=== PATIENT | female | born 1955 | race Two or more races ===

== ENCOUNTER 2017-07-16 18:15 | Emergency (ER) | payer OTHER ==
[~2017-07-16] VITALS: Ht 162.6 cm; Wt 79.4 kg
[~2017-07-16 18:15] MED LIST: GENTAMICIN SULF15 G2 LEFT EYE; PREDNISONE20 MG ORAL
--- NOTE | 2017-07-16 18:56 | Emergency Room Report ---
History of Present Illness General Chief Complaint: General Complaint Source: Patient Present Illness HPI 62-year-old female presents to the emergency department complaining of bruising , mild swelling and 6/10 in severity tenderness to the medial aspect of the left foot times one day. Patient does not recall appreciable fall or injury. Patient denies taking blood thinning medications. Patient denies fevers, chills , easy bruising elsewhere, rash. Patient has not taken any medication for her symptoms. Pt reports past medical history of depression and insomnia and states she takes Lexapro for depression and trazodone for insomnia. Patient does not recall she got up and middle the night and injured her foot. She denies calf pain. Denies hx of blood disorder. denies bloody noses, blood in stool or dark tarry stool. Denies numbness tingling or loss of sensation or gross motor movements of the extremities, incontinence of bowel or bladder. Denies CP, Palpitations, LOC, AMS, dizziness, Changes in Vision, Sensation, paresthesias, or a sudden severe headache. Allergies: Coded Allergies: No Known Allergies (Unverified , 10/10/15) Patient History Past Medical History: see triage record Past Surgical History: none Pertinent Family History: none Immunizations: UTD Reviewed Nursing Documentation: PMH: Agreed, PSxH: Agreed Nursing Documentation-PMH Past Medical History: No History, Except For History Of Psychiatric Problem: Yes - Depression Review of Systems All Other Systems: negative except mentioned in HPI Physical Exam Vital Signs Date Time Temp Pulse Resp B/P (MAP) Pulse Ox O2 Delivery O2 Flow Rate FiO2 07/16/17 18:20 97.9 70 16 134/79 98 Room Air Sp02 EP Interpretation: reviewed, normal General Appearance: no apparent distress, alert, GCS 15, non-toxic Head: normocephalic, atraumatic Eyes: bilateral eye normal inspection, bilateral eye PERRL ENT: hearing grossly normal, normal voice Neck: full range of motion Respiratory: chest non-tender, lungs clear, normal breath sounds, speaking full sentences Cardiovascular #1: regular rate, rhythm, no edema Gastrointestinal: non tender, soft Musculoskeletal: back normal, gait/station normal, normal range of motion, tender - TTP to the medial asptect of the left foot, pulses intact. Neurologic: alert, oriented x3, responsive, motor strength/tone normal, sensory intact, speech normal Psychiatric: judgement/insight normal, memory normal, mood/affect normal Skin: normal color, no rash, warm/dry, well hydrated, other - echymosis to the medial left foot. no erythema, skin is intact. Medical Decision Making PA Attestation Dr. Donovan is my supervising Physician whom patient management has been discussed with. Diagnostic Impression: Primary Impression: Contusion of foot with skin surface intact ER Course 62-year-old female presents to the emergency department complaining of bruising , mild swelling and 6/10 in severity tenderness to the medial aspect of the left foot times one day. Patient does not recall appreciable fall or injury. Patient denies taking blood thinning medications. Patient denies fevers, chills , easy bruising elsewhere, rash. Patient has not taken any medication for her symptoms. Pt reports past medical history of depression and insomnia and states she takes Lexapro for depression and trazodone for insomnia. Patient does not recall she got up and middle the night and injured her foot. She denies calf pain. Denies hx of blood disorder. denies bloody noses, blood in stool or dark tarry stool. Denies numbness tingling or loss of sensation or gross motor movements of the extremities, incontinence of bowel or bladder. Denies CP, Palpitations, LOC, AMS, dizziness, Changes in Vision, Sensation, paresthesias, or a sudden severe headache. Ddx considered but are not limited to Fracture, dislocation, contusion, Sprain/ Strain/Spasm, blood dyscrasia just to name a few. Vital signs: are WNL, pt. is afebrile H&PE are most consistent with musculoskeletal injury will perform imaging to r/ o fractures/dislocations. ORDERS: - X-ray Left Foot 3 views - negative for fx, Dislocation, or significant soft tissue injury, per preliminary read in ED by Dr. Donovan - interpretation is scribed by PA. ED INTERVENTIONS: - Pt. declines PO Tylenol- -Brayan wrap applied to the left foot by technical support analyst. Pt. remains neurovascularly intact. DISCHARGE: At this time pt. is stable for d/c to home. Will provide printed patient care instructions, and any necessary prescriptions. Care plan and follow up instructions have been discussed with the patient prior to discharge. Last Vital Signs Date Time Temp Pulse Resp B/P (MAP) Pulse Ox O2 Delivery O2 Flow Rate FiO2 9/7/17 18:20 97.9 70 16 134/79 98 Room Air Disposition: HOME, SELF-CARE Condition: Stable Scripts Acetaminophen* (TYLENOL EXTRA STRENGTH*) 500 Mg Tablet 500 MG ORAL Q6H, #20 TAB 0 Refills Prov: Cheryle Mandel 07/16/17 Referrals: [employer] [facility],REFERRIN (PCP) Patient Instructions: Foot Contusion Additional Instructions: Take medications as directed. Follow up with a Primary Care Provider in 3-5 days, even if your symptoms have resolved. --Please review list of primary care clinics, if you do not already have a primary care provider Return sooner to ED if new symptoms occur, or current symptoms become worse. - Please note that this Emergency Department Report was dictated using [employer] double technology software, occasionally this can lead to erroneous entry secondary to interpretation by the dictation equipment. Cheryle Mandel Jul 16, 2017 18:56
[2017-07-16] MEDS ORDERED: TYLENOL EXTRA500 MG ORAL (19:17)
[2017-07-16 19:25] VITALS: BP 134/79
[2017-07-16 19:33] VITALS: BP 134/79
--- NOTE | 2017-07-17 10:24 | Diagnostic Imaging Report ---
Indication: Pain Comparison: None Findings: 3 views of the left foot were obtained. No acute fractures, malalignment, erosions or periostitis are identified. Bone mineralization is within normal limits. Soft tissues are unremarkable. Impression: No acute findings
== END 2017-07-16 19:33 | disposition home or self-care (01) ==
LOC: EMR 18:49
DX: S90.32XA Contusion of left foot, initial encounter (principal); X58.XXXA Exposure to other specified factors, initial encounter; Y92.89 Other specified places as the place of occurrence of the external cause; F32.9 Major depressive disorder, single episode, unspecified; G47.00 Insomnia, unspecified; Z79.899 Other long term (current) drug therapy
CPT/HCPCS: 99283

== ENCOUNTER 2017-10-12 18:27 | Emergency (ER) | payer OTHER ==
[~2017-10-12] VITALS: Ht 165.1 cm; Wt 78.9 kg
[~2017-10-12 18:27] MED LIST changes: +TYLENOL EXTRA500 MG ORAL
[2017-10-12] MEDS ORDERED: GABAPENTIN600 MG ORAL (18:37)
[2017-10-12] MEDS ORDERED: TRAZODONE HCL100 MG ORAL (18:37)
[2017-10-12] MEDS ORDERED: LEXAPRO20 MG ORAL (18:37)
--- NOTE | 2017-10-12 18:58 | Emergency Room Report ---
History of Present Illness General Chief Complaint: Pain Present Illness HPI 62-year-old female presents to emergency department complaining of 10 out of 10 in severity acute posterior knee and calf pain since yesterday. Patient reports that she has had chronic pain in the knee and back however the pain she is experiencing is different and she denies trauma or fall. Patient reports feeling heaviness in the affected extremity on reports some swelling. Patient denies erythema, increased temperature palpation, open wounds or bruises. Patient states pain is exacerbated upon standing, walking however no relief from sitting and resting. Patient denies fevers, chills, chest pain, dyspnea, recent travel or shortness of breath. Denies CP, Palpitations, LOC, AMS, dizziness, Changes in Vision, Sensation, paresthesias, or a sudden severe headache. Allergies: Coded Allergies: No Known Allergies (Unverified , 10/10/15) Patient History Past Medical History: see triage record Past Surgical History: none Pertinent Family History: none Reviewed Nursing Documentation: PMH: Agreed, PSxH: Agreed Nursing Documentation-PMH History Of Psychiatric Problem: Yes - Depression Review of Systems All Other Systems: negative except mentioned in HPI Physical Exam Vital Signs Date Time Temp Pulse Resp B/P (MAP) Pulse Ox O2 Delivery O2 Flow Rate FiO2 10/12/17 18:32 97.7 62 18 124/68 100 Room Air Sp02 EP Interpretation: reviewed, normal General Appearance: no apparent distress, alert, GCS 15, non-toxic Head: normocephalic, atraumatic Eyes: bilateral eye normal inspection, bilateral eye PERRL ENT: hearing grossly normal, normal voice Neck: full range of motion Respiratory: lungs clear, normal breath sounds, speaking full sentences Cardiovascular #1: regular rate, rhythm, normal capillary refill Cardiovascular #2: 2+ dorsalis pedis (R), 2+ dorsalis pedis (L) Rectal: deferred Genitourinary: normal inspection, no CVA tenderness Musculoskeletal: back normal, gait/station normal, normal range of motion, other - no increased laxity to the left knee, FROM , no bruises, no abrasions. , tender - posterior left knee and calf ttp, no obvious deformity, palpable soft mass vs. posterior popliteal varicose vein, not throbbing palpated. Neurologic: alert, oriented x3, responsive, motor strength/tone normal, sensory intact, normal gait - pt. is mildly compensating sparing the left LE. , speech normal Skin: normal color, no rash, warm/dry, well hydrated, other - varicose veins Medical Decision Making PA Attestation Dr. cedeno is my supervising Physician whom patient management has been discussed with. Diagnostic Impression: Primary Impression: Knee pain, acute Qualified Codes: M25.562 - Pain in left knee Additional Impression: Varicose veins of lower extremity ER Course 62-year-old female presents to emergency department complaining of 10 out of 10 in severity acute posterior knee and calf pain since yesterday. Patient reports that she has had chronic pain in the knee and back however the pain she is experiencing is different and she denies trauma or fall. Patient reports feeling heaviness in the affected extremity on reports some swelling. Patient denies erythema, increased temperature palpation, open wounds or bruises. Patient states pain is exacerbated upon standing, walking however no relief from sitting and resting. Patient denies fevers, chills, chest pain, dyspnea, recent travel or shortness of breath. Denies CP, Palpitations, LOC, AMS, dizziness, Changes in Vision, Sensation, paresthesias, or a sudden severe headache. Ddx considered but are not limited to Cellulitis, DVT, varicose vein, PAD, Venous insufficiency, bakers cyst , fracture, sprain, dislocation just to name a few. Vital signs: are WNL, pt. is afebrile H&PE are most consistent with moderate varicose veins of the LLE will r/o DVT, or bakers cyst, popliteal artery aneurysm is of very low suspicion given no palpable pulsations. ORDERS: -X-Ray Knee: negative LE duplex U/s : Negative for DVT or bakers cyst, swollen /engorged varicose veins noted per US tech report. ED INTERVENTIONS: -Tylenol #3 PO -Brayan wrap applied to the left knee by machines technician. Pt. remains neurovascularly intact. -d/w pt. conservative treatment, and to follow up with a primary care provider. pt given a list of primary care clinics for follow up. d/w pt. to return to the ED with worsening or new symptoms. DISCHARGE: At this time pt. is stable for d/c to home. Will provide printed patient care instructions, and any necessary prescriptions. Care plan and follow up instructions have been discussed with the patient prior to discharge. Other X-Ray Diagnostic Results Other X-Ray Diagnostic Results : X-Ray ordered: Left Knee Indication: Pain EP Interpretation: Yes PA Xray: Interpretation reviewed, by supervising MD, and agrees with findings. Interpretation: no dislocation, no soft tissue swelling, no fractures Impression: No acute disease Electronically Signed by: Cheryle Mandel PA-C Last Vital Signs Date Time Temp Pulse Resp B/P (MAP) Pulse Ox O2 Delivery O2 Flow Rate FiO2 10/12/17 18:32 97.7 62 18 124/68 100 Room Air Disposition: HOME, SELF-CARE Condition: Stable Scripts Acetaminophen With Codeine (T#3) (TYLENOL #3 TAB*) Y Tab 1 TAB ORAL Q6HR Y for For Pain, #10 TAB Prov: Cheryle Mandel 10/12/17 Patient Instructions: Knee Pain Additional Instructions: Take medications as directed. Follow up with a Primary Care Provider in 3-5 days, additional tests and further evaluation may be needed if symptoms continue --Please review list of primary care clinics, if you do not already have a primary care provider Return sooner to ED if new symptoms occur, or current symptoms become worse. - Please note that this Emergency Department Report was dictated using [employer] director technology software, occasionally this can lead to erroneous entry secondary to interpretation by the dictation equipment. Cheryle Mandel Oct 12, 2017 18:58
[2017-10-12] MEDS ORDERED: Tylenol #3 tab (300mg/30mg) ORAL ONE (20:00)
[2017-10-12] MEDS ORDERED: ACETAMINOPHEN-1 EAC1 ORAL (20:01)
[2017-10-12 20:10] VITALS: BP 124/68
[2017-10-12 20:13] VITALS: BP 124/68
--- NOTE | 2017-10-13 10:39 | Diagnostic Imaging Report ---
APPROVED REPORT CPT Code: 23129 Present Symptoms Lower Extremity Pain: Left LEFT LEG: Venous imaging reveals a patent deep venous system. There is no evidence of thrombus within the femoral, popliteal or tibial segments. The greater saphenous vein is also within normal limits. Doppler indicates normal spontaneous flow within these segments. Incidental finding: Compressible anechoic structure in the distal popliteal fossa. Eng's cyst vs. prominent superficial vein.
== END 2017-10-12 20:13 | disposition home or self-care (01) ==
LOC: EMR 19:10
DX: M25.562 Pain in left knee (principal); I83.90 Asymptomatic varicose veins of unspecified lower extremity; F32.9 Major depressive disorder, single episode, unspecified
CPT/HCPCS: 93971; 99283

== ENCOUNTER 2017-12-10 20:01 | Emergency (ER) | payer MEDICAID, OTHER ==
[~2017-12-10] VITALS: Ht 160 cm; Wt 77.1 kg
[~2017-12-10 20:01] MED LIST changes: +ACETAMINOPHEN-1 EAC1 ORAL; +GABAPENTIN600 MG ORAL; +LEXAPRO20 MG ORAL; +TRAZODONE HCL100 MG ORAL
[2017-12-10 20:25] VITALS: BP 143/72
[2017-12-10] MEDS ORDERED: Cephalexin 500mg cap ORAL ONE (21:00)
[2017-12-10] MEDS ORDERED: PHENAZOPYRIDIN200 MG ORAL (21:04)
[2017-12-10] MEDS ORDERED: KEFLEX500 MG ORAL (21:04)
[2017-12-10 21:09] LABS: APPEARANCE,URINE CLOUDY; BILIRUBIN, URINE NEGATIVE (NEGATIVE); COLOR,URINE PALE YELLOW; GLUCOSE, URINE (UA) NEGATIVE (NEGATIVE); KETONES,URINE NEGATIVE (NEGATIVE); LEUKOCYTE ESTERASE ,URINE 3+ (NEGATIVE); NITRITE,URINE NEGATIVE (NEGATIVE); PH,URINE 6 (4.5-8.0); PROTEIN,URINE NEGATIVE (NEGATIVE); UROBILINOGEN,URINE NORMAL MG/DL (0.0-1.0)
[2017-12-10 21:27] VITALS: BP 143/72
--- NOTE | 2017-12-10 21:42 | Emergency Room Report ---
History of Present Illness General Chief Complaint: Female Urogenital Problems Source: Patient Present Illness HPI patient is 62 year old female who presented for increased dysuria for three days. she denied vomiting or fever. She had previous UTI The patient having increased suprapubic pain. She initially had some hematuria which had resolved. Patient denied any fever she denied flank pain or vomiting. Allergies: Coded Allergies: No Known Allergies (Unverified , 10/10/15) Patient History Past Medical History: see triage record Now: No Reviewed Nursing Documentation: PMH: Agreed, PSxH: Agreed Nursing Documentation-PMH History Of Psychiatric Problem: Yes - Depression Review of Systems All Other Systems: negative except mentioned in HPI Physical Exam Vital Signs Date Time Temp Pulse Resp B/P (MAP) Pulse Ox O2 Delivery O2 Flow Rate FiO2 12/10/17 20:22 98.1 64 15 143/72 96 Room Air General Appearance: well appearing, no apparent distress, alert, GCS 15 Head: normocephalic, atraumatic ENT: hearing grossly normal, normal voice Neck: full range of motion, supple Respiratory: no respiratory distress, speaking full sentences Gastrointestinal: normal inspection, normal bowel sounds, soft Genitourinary: no CVA tenderness Musculoskeletal: no calf tenderness Neurologic: normal inspection, alert, oriented x3, responsive, motor strength/ tone normal, normal gait Psychiatric: normal inspection, mood/affect normal Skin: no rash Medical Decision Making Diagnostic Impression: Primary Impression: Urinary tract infection ER Course Patient presented for abdominal pain. Differential diagnoses included ischemic bowel, appendicitis, perforated viscus, abdominal aortic aneurysm, inferior myocardial infarction, viral gastroenteritis Patient has a benign exam and does not appear to require any imaging at this time. The patient noted have evidence of urinary infection. Patient given oral antibiotics in emergency department. The patient is advised to return if she began having worsening condition or worsening pain or other concerns Labs Test 12/10/17 20:55 Urine Color Pale yellow Urine Appearance Cloudy Urine pH 6 (4.5-8.0) Urine Specific Anderson 1.010 (1.005-1.035) Urine Protein Negative (NEGATIVE) Urine Glucose (UA) Negative (NEGATIVE) Urine Ketones Negative (NEGATIVE) Urine Occult Blood 3+ (NEGATIVE) Urine Nitrite Negative (NEGATIVE) Urine Bilirubin Negative (NEGATIVE) Urine Urobilinogen Normal MG/DL (0.0-1.0) Urine Leukocyte Esterase 3+ (NEGATIVE) Urine RBC 0-2 /HPF (0 - 2) Urine WBC Tntc /HPF (0 - 2) Urine Squamous Epithelial Cells Few /LPF (NONE/OCC) Urine Bacteria Few /HPF (NONE) Last Vital Signs Date Time Temp Pulse Resp B/P (MAP) Pulse Ox O2 Delivery O2 Flow Rate FiO2 12/10/17 20:22 98.1 64 15 143/72 96 Room Air Status: improved Disposition: HOME, SELF-CARE Condition: Stable Scripts Phenazopyridine Hcl* (PYRIDIUM*) 200 Mg Tablet 200 MG ORAL THREE TIMES A DAY, #14 TAB 0 Refills Prov: Johnny Weiner 12/10/17 Cephalexin* (KEFLEX*) 500 Mg Capsule 500 MG ORAL Q6H, #28 CAP 0 Refills Prov: Johnny Weiner 12/10/17 Patient Instructions: Urinary Tract Infection Johnny Weiner Dec 10, 2017 21:42
== END 2017-12-10 21:27 | disposition home or self-care (01) ==
LOC: EMR 20:55
DX: N39.0 Urinary tract infection, site not specified (principal)
CPT/HCPCS: 81003; 87086; 99283

== ENCOUNTER 2018-03-08 21:16 | Emergency (ER) | payer MEDICAID ==
[~2018-03-08] VITALS: Ht 162.6 cm; Wt 77.1 kg
[~2018-03-08 21:16] MED LIST changes: +KEFLEX500 MG ORAL; +PHENAZOPYRIDIN200 MG ORAL
[2018-03-08] MEDS ORDERED: Nitroglycerin Subl 0.4mg tab SL PRN (21:30)
[2018-03-08] MEDS ORDERED: Aspirin Baby 81mg ORAL ONE (21:30)
[2018-03-08 21:40] VITALS: BP 138/71
--- NOTE | 2018-03-08 21:40 | Emergency Room Report ---
History of Present Illness General Chief Complaint: Chest Pain Source: Patient Present Illness [facility] This is a 62-year-old female with history of depression. She presents with chief complaint of left-sided chest pain has been ongoing for 2 days. Pain radiates to the back. Exertion does make it mildly worse. No shortness of breath. No diaphoresis. No nausea no vomiting. Tramadol and is not helping. No cough or congestion. No runny nose. Allergies: Coded Allergies: No Known Allergies (Unverified , 10/10/15) Patient History Past Medical History: see triage record, old chart reviewed, psych hx Past Surgical History: none Pertinent Family History: none Social History: Denies: smoking Now: No Immunizations: other Reviewed Nursing Documentation: PMH: Agreed; PSxH: Agreed Nursing Documentation-PMH History Of Psychiatric Problem: Yes - DEPRESSION Review of Systems Eye: Denies: eye pain, blurred vision ENT: Denies: ear pain, nose congestion, throat swelling Respiratory: Denies: cough, shortness of breath Cardiovascular: Reports: chest pain; Denies: palpitations Gastrointestinal: Denies: abdominal pain, diarrhea, nausea, vomiting Musculoskeletal: Denies: back pain, joint pain Skin: Denies: rash Neurological: Denies: headache, numbness Endocrine: Denies: increased thirst, increased urine Hematologic/Lymphatic: Denies: easy bruising All Other Systems: negative except mentioned in HPI Physical Exam Vital Signs Date Time Temp Pulse Resp B/P (MAP) Pulse Ox O2 Delivery O2 Flow Rate FiO2 03/08/18 21:28 97.4 74 16 138/71 98 Room Air 97.3 vitals normal Sp02 EP Interpretation: reviewed, normal General Appearance: well appearing, no apparent distress, alert Head: normocephalic, atraumatic Eyes: bilateral eye PERRL, bilateral eye EOMI ENT: hearing grossly normal, normal pharynx Neck: full range of motion, supple, no meningismus Respiratory: chest non-tender, lungs clear, normal breath sounds Cardiovascular #1: regular rate, rhythm, no murmur Gastrointestinal: normal bowel sounds, non tender, no mass, no organomegaly, no bruit, non-distended Musculoskeletal: back normal, gait/station normal, normal range of motion Psychiatric: mood/affect normal Skin: warm/dry Medical Decision Making Diagnostic Impression: Primary Impression: Chest pain Qualified Codes: R07.9 - Chest pain, unspecified ER Course She presents with vague atypical chest pain. Has been constant for 2 days and troponin is negative. EKG is unremarkable. Said she felt better now. Initially I had put her up for admission versus transfer for further workup on her chest pain. I discussed this with her son who is a family physician. While waiting for insurance process, she said she felt better and wants to go home. We'll discharge home with follow-up with cardiology for further workup. She is otherwise low risk. Lab Results Impression labs normal EKG Diagnostic Results Rate: normal Rhythm: NSR ST Segments: other - right bundle branch block ASA given to the pt in ED: Yes Rhythm Strip Diag. Results Rhythm Strip Time: 21:40 EP Interpretation: yes Rate: 70 Rhythm: NSR, no PVC's, no ectopy Chest X-Ray Diagnostic Results Chest X-Ray Diagnostic Results : Chest X-Ray Ordered: Yes # of Views/Limited/Complete: 1 View Indication: Chest Pain EP Interpretation: Yes Interpretation: no consolidation, no effusion, no pneumothorax, no acute cardiopulmonary disease Impression: No acute disease Electronically Signed by: Deejay Hurley MD Last Vital Signs Date Time Temp Pulse Resp B/P (MAP) Pulse Ox O2 Delivery O2 Flow Rate FiO2 03/08/18 21:28 97.4 74 16 138/71 98 Room Air 97.3 Status: improved Disposition: HOME, SELF-CARE Condition: Stable Referrals: [facility]ERR[facility] (PCP) Patient Instructions: Nonspecific Chest Pain Additional Instructions: Follow up with your doctor in 2-3 days. Take an aspirin a day. You may need a referral to see a aerial advertiser for further heart work up like a stress test. DEEJAY HURLEY M.D. Mar 08, 2018 21:40
[2018-03-08 22:01] LABS: APPEARANCE,URINE CLEAR; BILIRUBIN, URINE NEGATIVE (NEGATIVE); COLOR,URINE PALE YELLOW; GLUCOSE, URINE (UA) NEGATIVE (NEGATIVE); KETONES,URINE NEGATIVE (NEGATIVE); LEUKOCYTE ESTERASE ,URINE 1+ (NEGATIVE); NITRITE,URINE NEGATIVE (NEGATIVE); PH,URINE 6 (4.5-8.0); PROTEIN,URINE NEGATIVE (NEGATIVE); UROBILINOGEN,URINE NORMAL MG/DL (0.0-1.0)
[2018-03-08 22:03] LABS: BASOPHILS % (AUTO) 1.2 % (0.0-2.0); EOSINOPHILS % (AUTO) 1.9 % (0.0-3.0); HEMATOCRIT 41.5 % (37.0-47.0); HEMOGLOBIN 14.8 G/DL (12.0-16.0); MEAN CORPUSCULAR VOLUME 91 FL (80-99); NEUTROPHILS % (AUTO) 41.9 % (45.0-75.0); PLATELET COUNT 203 K/UL (150-450); RED BLOOD COUNT 4.57 M/UL (4.20-5.40); RED CELL DISTRIBUTION WIDTH 10.5 % (11.6-14.8); WHITE BLOOD COUNT 7.7 K/UL (4.8-10.8)
[2018-03-08 22:12] LABS: ANION GAP 10 mmol/L (5-15); BLOOD UREA NITROGEN 16 mg/dL (7-18); CALCIUM 9.2 MG/DL (8.5-10.1); CARBON DIOXIDE 27 MMOL/L (21-32); CHLORIDE 102 MMOL/L (98-107); CREATININE 0.6 MG/DL (0.55-1.30); POTASSIUM 3.8 MMOL/L (3.5-5.1); SODIUM 139 MMOL/L (136-145)
[2018-03-08 22:25] LABS: ALANINE AMINOTRANSFERASE 25 U/L (12-78); ALKALINE PHOSPHATASE 92 U/L (46-116); ASPARTATE AMINO TRANSFERASE 16 U/L (15-37); BILIRUBIN,TOTAL 0.3 MG/DL (0.2-1.0); CKMB 0.8 NG/ML (0.0-3.6); CREATINE KINASE 59 U/L (26-308)
[2018-03-08] MEDS ORDERED: Ketorolac 30mg Inj IV ONE (22:45)
[2018-03-08 23:20] VITALS: BP 116/71
[2018-03-08 23:25] VITALS: BP 116/71
--- NOTE | 2018-03-09 10:19 | Diagnostic Imaging Report ---
Indication: Chest pain Comparison: None A single view chest radiograph was obtained. Findings: Cardiomediastinal appearance is within normal limits for age. Pulmonary vascularity is appropriate. The diaphragmatic contour is smooth and costophrenic angles are sharp. No pleural effusions are identified. The bones are unremarkable. Impression: No acute findings
--- NOTE | 2018-03-09 16:52 | Cardiology Report ---
APPROVED REPORT EKG Measurement Heart [id number] Normal sinus rhythm Possible Left atrial enlargement Right bundle branch block Abnormal ECG
== END 2018-03-08 23:25 | disposition home or self-care (01) ==
LOC: EMR 21:34
DX: R07.89 Other chest pain (principal); F32.9 Major depressive disorder, single episode, unspecified
CPT/HCPCS: 36415; 71045; 80053; 81003; 82550; 82553; 84484; 85025; 93005; 96374; 99284; J1885

== ENCOUNTER 2018-03-13 12:24 | Inpatient (IN) | payer MEDICAID ==
[~2018-03-13] VITALS: Ht 165.1 cm; Wt 78.0 kg
[2018-03-13 13:37] VITALS: BP 118/59
[2018-03-13 13:42] LABS: HEMATOCRIT 40.5 % (37.0-47.0); HEMOGLOBIN 15.1 G/DL (12.0-16.0); MEAN CORPUSCULAR VOLUME 93 FL (80-99); PLATELET COUNT 182 K/UL (150-450); RED BLOOD COUNT 4.37 M/UL (4.20-5.40); RED CELL DISTRIBUTION WIDTH 10.5 % (11.6-14.8); WHITE BLOOD COUNT 9.2 K/UL (4.8-10.8)
[2018-03-13] MEDS ORDERED: Morphine Sulfate 4mg/ml Inj IVP ONE ×2 (13:45→15:45)
[2018-03-13 13:58] LABS: ALANINE AMINOTRANSFERASE 28 U/L (12-78); ALBUMIN 3.9 G/DL (3.4-5.0); ALBUMIN/GLOBULIN RATIO 1.1 (1.0-2.7); ALKALINE PHOSPHATASE 85 U/L (46-116); ANION GAP 12 mmol/L (5-15); ASPARTATE AMINO TRANSFERASE 29 U/L (15-37); BILIRUBIN,TOTAL 0.5 MG/DL (0.2-1.0); BLOOD UREA NITROGEN 13 mg/dL (7-18); CALCIUM 8.9 MG/DL (8.5-10.1); CARBON DIOXIDE 27 MMOL/L (21-32); CHLORIDE 101 MMOL/L (98-107); CREATININE 0.5 MG/DL (0.55-1.30); POTASSIUM 4.1 MMOL/L (3.5-5.1); SODIUM 139 MMOL/L (136-145)
[2018-03-13] MEDS ORDERED: Isovue-300 100ml vial INJ ONE (14:30)
[2018-03-13 14:35] LABS: APPEARANCE,URINE CLEAR; BILIRUBIN, URINE NEGATIVE (NEGATIVE); COLOR,URINE PALE YELLOW; GLUCOSE, URINE (UA) NEGATIVE (NEGATIVE); KETONES,URINE NEGATIVE (NEGATIVE); LEUKOCYTE ESTERASE ,URINE 2+ (NEGATIVE); NITRITE,URINE NEGATIVE (NEGATIVE); PH,URINE 8 (4.5-8.0); PROTEIN,URINE NEGATIVE (NEGATIVE); UROBILINOGEN,URINE NORMAL MG/DL (0.0-1.0)
--- NOTE | 2018-03-13 15:20 | Emergency Room Report ---
History of Present Illness General Chief Complaint: Abdominal Pain Source: Patient (Deshaun Kaur MD) Present Illness HPI 62-year-old female presents ED for evaluation. Patient complaining of abdominal pain with vomiting 2 days. Pain is epigastric, sharp, 8 out of 10. Complaining of chills. Afebrile. Patient was seen here few days ago for chest pain. Was offered admission but declined and wished to be discharged. Denies any shortness of breath. No other aggravating or relieving factors. Denies any other associated symptoms (Deshaun Kaur MD) Allergies: Coded Allergies: No Known Allergies (Unverified , 10/10/15) Patient History Past Medical History: HTN, psych hx Past Surgical History: none Pertinent Family History: none Social History: Denies: smoking, alcohol use, drug use Now: No Immunizations: UTD Reviewed Nursing Documentation: PMH: Agreed; PSxH: Agreed (Deshaun Kaur MD) Nursing Documentation-PMH Past Medical History: No History, Except For Hx Cardiac Problems: Yes - Mitral valve prolapse, arthritis Hx Hypertension: No Hx Pacemaker: No Hx Asthma: No Hx COPD: No Hx Diabetes: No Hx Cancer: No Hx Gastrointestinal Problems: No Hx Dialysis: No History Of Psychiatric Problem: Yes - Depression, anxiety Hx Neurological Problems: No Hx Cerebrovascular Accident: No Hx Seizures: No (Deshaun Kaur MD) Review of Systems All Other Systems: negative except mentioned in HPI (Deshaun Kaur MD) Physical Exam Vital Signs Date Time Temp Pulse Resp B/P (MAP) Pulse Ox O2 Delivery O2 Flow Rate FiO2 03/13/18 12:27 99.8 111 20 125/74 95 Room Air 99.9 Sp02 EP Interpretation: reviewed, normal General Appearance: no apparent distress, alert, GCS 15, non-toxic Head: normocephalic, atraumatic Eyes: bilateral eye normal inspection, bilateral eye PERRL ENT: hearing grossly normal, normal pharynx, no angioedema, normal voice Neck: full range of motion, supple/symm/no masses Respiratory: chest non-tender, lungs clear, normal breath sounds, speaking full sentences Cardiovascular #1: regular rate, rhythm, no edema Cardiovascular #2: 2+ carotid (R), 2+ carotid (L), 2+ radial (R), 2+ radial (L) , 2+ dorsalis pedis (R), 2+ dorsalis pedis (L) Gastrointestinal: normal bowel sounds, soft, non-distended, no guarding, no rebound, tenderness Rectal: deferred Genitourinary: normal inspection, no CVA tenderness Musculoskeletal: back normal, gait/station normal, normal range of motion, non- tender Neurologic: alert, oriented x3, responsive, motor strength/tone normal, sensory intact, speech normal Psychiatric: judgement/insight normal, memory normal, mood/affect normal, no suicidal/homicidal ideation Reflexes: 3+ bicep (R), 3+ bicep (L), 3+ tricep (R), 3+ tricep (L), 3+ knee (R) , 3+ knee (L) Skin: normal color, no rash, warm/dry, well hydrated Lymphatic: no adenopathy (Deshaun Kaur MD) Medical Decision Making Diagnostic Impression: Primary Impression: ACS (acute coronary syndrome) Additional Impression: Abdominal pain Labs Test 03/13/18 12:40 03/13/18 14:25 White Blood Count 9.2 K/UL (4.8-10.8) Red Blood Count 4.37 M/UL (4.20-5.40) Hemoglobin 15.1 G/DL (12.0-16.0) Hematocrit 40.5 % (37.0-47.0) Mean Corpuscular Volume 93 FL (80-99) Mean Corpuscular Hemoglobin 34.5 PG (27.0-31.0) Mean Corpuscular Hemoglobin Concent 37.3 G/DL (32.0-36.0) Red Cell Distribution Width 10.5 % (11.6-14.8) Platelet Count 182 K/UL (150-450) Mean Platelet Volume 8.1 FL (6.5-10.1) Neutrophils (%) (Auto) % (45.0-75.0) Lymphocytes (%) (Auto) % (20.0-45.0) Monocytes (%) (Auto) % (1.0-10.0) Eosinophils (%) (Auto) % (0.0-3.0) Basophils (%) (Auto) % (0.0-2.0) Differential Total Cells Counted 100 Neutrophils % (Manual) 75 % (45-75) Lymphocytes % (Manual) 7 % (20-45) Monocytes % (Manual) 12 % (1-10) Eosinophils % (Manual) 0 % (0-3) Basophils % (Manual) 0 % (0-2) Band Neutrophils 6 % (0-8) Platelet Estimate Adequate Platelet Morphology Normal Red Blood Cell Morphology Normal Sodium Level 139 MMOL/L (136-145) Potassium Level 4.1 MMOL/L (3.5-5.1) Chloride Level 101 MMOL/L (98-107) Carbon Dioxide Level 27 MMOL/L (21-32) Anion Gap 12 mmol/L (5-15) Blood Urea Nitrogen 13 mg/dL (7-18) Creatinine 0.5 MG/DL (0.55-1.30) Estimat Glomerular Filtration Rate > 60 mL/min (>60) Glucose Level 103 MG/DL (74-106) Calcium Level 8.9 MG/DL (8.5-10.1) Total Bilirubin 0.5 MG/DL (0.2-1.0) Aspartate Amino Transf (AST/SGOT) 29 U/L (15-37) Alanine Aminotransferase (ALT/SGPT) 28 U/L (12-78) Alkaline Phosphatase 85 U/L (46-116) Troponin I 0.000 ng/mL (0.000-0.056) Total Protein 7.3 G/DL (6.4-8.2) Albumin 3.9 G/DL (3.4-5.0) Globulin 3.4 g/dL Albumin/Globulin Ratio 1.1 (1.0-2.7) Lipase 147 U/L (73-393) Urine Color Pale yellow Urine Appearance Clear Urine pH 8 (4.5-8.0) Urine Specific [place] 1.010 (1.005-1.035) Urine Protein Negative (NEGATIVE) Urine Glucose (UA) Negative (NEGATIVE) Urine Ketones Negative (NEGATIVE) Urine Occult Blood 3+ (NEGATIVE) Urine Nitrite Negative (NEGATIVE) Urine Bilirubin Negative (NEGATIVE) Urine Urobilinogen Normal MG/DL (0.0-1.0) Urine Leukocyte Esterase 2+ (NEGATIVE) Urine RBC 5-10 /HPF (0 - 2) Urine WBC 2-4 /HPF (0 - 2) Urine Squamous Epithelial Cells Few /LPF (NONE/OCC) Urine Bacteria Occasional /HPF (NONE) (Deshaun Kaur MD) ER Course Please refer to the initial note for the history exam and presentation. 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 Patient admitted for further inpatient care Labs Test 03/13/18 12:40 03/13/18 14:25 White Blood Count 9.2 K/UL (4.8-10.8) Red Blood Count 4.37 M/UL (4.20-5.40) Hemoglobin 15.1 G/DL (12.0-16.0) Hematocrit 40.5 % (37.0-47.0) Mean Corpuscular Volume 93 FL (80-99) Mean Corpuscular Hemoglobin 34.5 PG (27.0-31.0) Mean Corpuscular Hemoglobin Concent 37.3 G/DL (32.0-36.0) Red Cell Distribution Width 10.5 % (11.6-14.8) Platelet Count 182 K/UL (150-450) Mean Platelet Volume 8.1 FL (6.5-10.1) Neutrophils (%) (Auto) % (45.0-75.0) Lymphocytes (%) (Auto) % (20.0-45.0) Monocytes (%) (Auto) % (1.0-10.0) Eosinophils (%) (Auto) % (0.0-3.0) Basophils (%) (Auto) % (0.0-2.0) Differential Total Cells Counted 100 Neutrophils % (Manual) 75 % (45-75) Lymphocytes % (Manual) 7 % (20-45) Monocytes % (Manual) 12 % (1-10) Eosinophils % (Manual) 0 % (0-3) Basophils % (Manual) 0 % (0-2) Band Neutrophils 6 % (0-8) Platelet Estimate Adequate Platelet Morphology Normal Red Blood Cell Morphology Normal Sodium Level 139 MMOL/L (136-145) Potassium Level 4.1 MMOL/L (3.5-5.1) Chloride Level 101 MMOL/L (98-107) Carbon Dioxide Level 27 MMOL/L (21-32) Anion Gap 12 mmol/L (5-15) Blood Urea Nitrogen 13 mg/dL (7-18) Creatinine 0.5 MG/DL (0.55-1.30) Estimat Glomerular Filtration Rate > 60 mL/min (>60) Glucose Level 103 MG/DL (74-106) Calcium Level 8.9 MG/DL (8.5-10.1) Total Bilirubin 0.5 MG/DL (0.2-1.0) Aspartate Amino Transf (AST/SGOT) 29 U/L (15-37) Alanine Aminotransferase (ALT/SGPT) 28 U/L (12-78) Alkaline Phosphatase 85 U/L (46-116) Troponin I 0.000 ng/mL (0.000-0.056) Total Protein 7.3 G/DL (6.4-8.2) Albumin 3.9 G/DL (3.4-5.0) Globulin 3.4 g/dL Albumin/Globulin Ratio 1.1 (1.0-2.7) Lipase 147 U/L (73-393) Urine Color Pale yellow Urine Appearance Clear Urine pH 8 (4.5-8.0) Urine Specific [place] 1.010 (1.005-1.035) Urine Protein Negative (NEGATIVE) Urine Glucose (UA) Negative (NEGATIVE) Urine Ketones Negative (NEGATIVE) Urine Occult Blood 3+ (NEGATIVE) Urine Nitrite Negative (NEGATIVE) Urine Bilirubin Negative (NEGATIVE) Urine Urobilinogen Normal MG/DL (0.0-1.0) Urine Leukocyte Esterase 2+ (NEGATIVE) Urine RBC 5-10 /HPF (0 - 2) Urine WBC 2-4 /HPF (0 - 2) Urine Squamous Epithelial Cells Few /LPF (NONE/OCC) Urine Bacteria Occasional /HPF (NONE) (Vasyl Crane DO) EKG Diagnostic Results Rate: normal Rhythm: NSR ST Segments: other - flattening twaves in lateral leads. RBBB ASA given to the pt in ED: Yes (Deshaun Kaur MD) Rhythm Strip Diag. Results EP Interpretation: yes Rhythm: NSR, no PVC's, no ectopy (Deshaun Kuar MD) EP Interpretation: yes Rate: 77 Rhythm: NSR, no PVC's, no ectopy, other - Nonspecific interventric (Vasyl Crane DO) CT/MRI/US Diagnostic Results CT/MRI/US Diagnostic Results : Impression CT abdomen pelvis scattered fluid-filled loops of small bowel possibility of partial ileus versus enteritis distended gallbladder appendix normal (Vasyl Crane DO) Last Vital Signs Date Time Temp Pulse Resp B/P (MAP) Pulse Ox O2 Delivery O2 Flow Rate FiO2 03/13/18 13:45 99.8 03/13/18 13:37 95 29 118/59 98 Room Air Status: improved (Deshaun Kaur MD) Status: improved (Vasyl Crane DO) Disposition: ADMITTED INPATIENT Condition: Serious Referrals: [facility],REFERRING (PCP) Deshaun Kaur MD March 13, 2018 15:20 Vasyl Crane DO March 13, 2018 16:23
[2018-03-13 16:14] VITALS: BP 121/63
[2018-03-13] MEDS ORDERED: LORazepam Inj 2mg/ml 1ml IV ONE (16:15)
[2018-03-13] MEDS ORDERED: Mylanta II UD 30ml ORAL ONE (16:15)
[2018-03-13] MEDS ORDERED: DiphenhydrAMINE 50mg/ml Inj IVP ONE (16:15)
[2018-03-13] MEDS ORDERED: Dicyclomine HCl 10mg/5ml oral soln ORAL ONE (16:15)
[2018-03-13] MEDS ORDERED: Lidocaine 2% Visc 15ml soln ORAL ONE (16:15)
[2018-03-13] MEDS ORDERED: AMITRIPTYLINE100 MG ORAL (16:57)
[2018-03-13 17:15] VITALS: BP 106/61
--- NOTE | 2018-03-13 17:17 | Cardiac Electrophysiology PN ---
Subjective Subjective Cardiology consult dictated. [id number] Objective Last 24 Hour Vital Signs Date Time Temp Pulse Resp B/P (MAP) Pulse Ox O2 Delivery O2 Flow Rate FiO2 03/13/18 16:14 94 23 121/63 100 Room Air 03/13/18 15:41 99.8 03/13/18 13:45 99.8 03/13/18 13:37 95 29 118/59 98 Room Air 03/13/18 12:27 99.8 111 20 125/74 95 Room Air 99.9 Laboratory Tests Test 03/13/18 12:40 03/13/18 14:25 White Blood Count 9.2 K/UL (4.8-10.8) Red Blood Count 4.37 M/UL (4.20-5.40) Hemoglobin 15.1 G/DL (12.0-16.0) Hematocrit 40.5 % (37.0-47.0) Mean Corpuscular Volume 93 FL (80-99) Mean Corpuscular Hemoglobin 34.5 PG (27.0-31.0) H Mean Corpuscular Hemoglobin Concent 37.3 G/DL (32.0-36.0) H Red Cell Distribution Width 10.5 % (11.6-14.8) L Platelet Count 182 K/UL (150-450) Mean Platelet Volume 8.1 FL (6.5-10.1) Neutrophils (%) (Auto) % (45.0-75.0) Lymphocytes (%) (Auto) % (20.0-45.0) Monocytes (%) (Auto) % (1.0-10.0) Eosinophils (%) (Auto) % (0.0-3.0) Basophils (%) (Auto) % (0.0-2.0) Differential Total Cells Counted 100 Neutrophils % (Manual) 75 % (45-75) Lymphocytes % (Manual) 7 % (20-45) L Monocytes % (Manual) 12 % (1-10) H Eosinophils % (Manual) 0 % (0-3) Basophils % (Manual) 0 % (0-2) Band Neutrophils 6 % (0-8) Platelet Estimate Adequate Platelet Morphology Normal Red Blood Cell Morphology Normal Sodium Level 139 MMOL/L (136-145) Potassium Level 4.1 MMOL/L (3.5-5.1) Chloride Level 101 MMOL/L (98-107) Carbon Dioxide Level 27 MMOL/L (21-32) Anion Gap 12 mmol/L (5-15) Blood Urea Nitrogen 13 mg/dL (7-18) Creatinine 0.5 MG/DL (0.55-1.30) L Estimat Glomerular Filtration Rate > 60 mL/min (>60) Glucose Level 103 MG/DL (74-106) Calcium Level 8.9 MG/DL (8.5-10.1) Total Bilirubin 0.5 MG/DL (0.2-1.0) Aspartate Amino Transf (AST/SGOT) 29 U/L (15-37) Alanine Aminotransferase (ALT/SGPT) 28 U/L (12-78) Alkaline Phosphatase 85 U/L (46-116) Troponin I 0.000 ng/mL (0.000-0.056) Total Protein 7.3 G/DL (6.4-8.2) Albumin 3.9 G/DL (3.4-5.0) Globulin 3.4 g/dL Albumin/Globulin Ratio 1.1 (1.0-2.7) Lipase 147 U/L (73-393) Urine Color Pale yellow Urine Appearance Clear Urine pH 8 (4.5-8.0) Urine Specific [place] 1.010 (1.005-1.035) Urine Protein Negative (NEGATIVE) Urine Glucose (UA) Negative (NEGATIVE) Urine Ketones Negative (NEGATIVE) Urine Occult Blood 3+ (NEGATIVE) H Urine Nitrite Negative (NEGATIVE) Urine Bilirubin Negative (NEGATIVE) Urine Urobilinogen Normal MG/DL (0.0-1.0) Urine Leukocyte Esterase 2+ (NEGATIVE) H Urine RBC 5-10 /HPF (0 - 2) H Urine WBC 2-4 /HPF (0 - 2) Urine Squamous Epithelial Cells Few /LPF (NONE/OCC) Urine Bacteria Occasional /HPF (NONE) Lucian Jarrett MD March 13, 2018 17:17
--- NOTE | 2018-03-13 17:54 | Consultation ---
History of Present Illness General Date patient seen: March 13, 2018 Chief Complaint: Abdominal Pain Reason for Consultation: abdominal pain Present Illness HPI 62 year old female with chest pain, epigastric abdominal pain, nausea, emesis. States that a few days ago initially had symptoms and came to ED. In ED was recommended for admission and further work up but declined and went home. Was doing okay but this morning began to note similar episode so returned to ED for evaluation. States pain is 8/10 epigastric pain with radiation to bilateral subcostal area and mid back. nausea intermittent and emesis x2-3 episodes this AM non bloody. Of note, states that she had 1-2 weeks of diarrhea last month but did not seen medical care. She also suffers from chronic constipation which she self prescribes 1G magnesium qhs. Has long history of arthritis, sciatica, and generalized pains which she takes daily naproxen. Labs in ED normal, CT scan without significant findings, cardiology note reviewed. Surgery called to evaluate given abdominal pain, distended gallbladder, and CT findings of possible partial ileus. patient seen, chart reviewed, patient examined. Allergies: Coded Allergies: No Known Allergies (Unverified , 10/10/15) Medication History Scheduled Acetaminophen* (Tylenol Extra Strength*), 500 MG ORAL Q6H Amitriptyline HCl (Amitriptyline HCl), 50 MG ORAL BEDTIME, (Reported) Cephalexin* (Keflex*), 500 MG ORAL Q6H Escitalopram Oxalate* (Lexapro*), 20 MG ORAL DAILY, (Reported) Gabapentin* (Gabapentin*), 600 MG ORAL HS, (Reported) Gentamicin Sulfate (Gentamicin Sulfate*), 1 APPLIC LEFT EYE BID Phenazopyridine Hcl* (Pyridium*), 200 MG ORAL THREE TIMES A DAY Prednisone* (Prednisone*), 40 MG ORAL DAILY Trazodone Hcl* (Desyrel*), 100 MG ORAL BEDTIME, (Reported) Scheduled PRN Acetaminophen With Codeine (T#3) (Tylenol #3 Tab*), 1 TAB ORAL Q6HR PRN for For Pain Patient History History Provided By: Patient, Family Member, Medical Record, PMD Healthcare decision maker Resuscitation status Advanced Directive on File Past Medical/Surgical History Past Medical/Surgical History: (1) Sty, external (2) Allergic dermatitis (3) Urinary tract infection (4) Abdominal pain (5) ACS (acute coronary syndrome) Review of Systems Constitutional: Reports: malaise, weakness Eye: Denies: no symptoms, see HPI, eye pain, blurred vision, tearing, double vision, nose pain, nose congestion, acuity changes, discharge, other ENT: Denies: no symptoms, see HPI, ear pain, ear discharge, nose pain, nose congestion, throat pain, throat swelling, mouth pain, hearing loss, nasal discharge, other Respiratory: Denies: no symptoms, see HPI, cough, orthopnea, shortness of breath, stridor, wheezing, HER[place]NDEZ, sputum, other Cardiovascular: Reports: chest pain Gastrointestinal: Reports: abdominal pain, constipation, nausea, vomiting Genitourinary: Denies: no symptoms, see HPI, discharge, dysuria, frequency, hematuria, pain, retention, incontinence, urgency, vag bleed/dc, other Musculoskeletal: Denies: no symptoms, see HPI, back pain, gout, joint pain, joint swelling, muscle pain, muscle stiffness, other Skin: Denies: no symptoms, see HPI, rash, change in color, change in hair/nails , dryness, lesions, other Psychiatric: Denies: no symptoms, see HPI, prior hx, anxiety, depressed feelings, emotional problems, SI, HI, hallucinations, other Neurological: Denies: no symptoms, see HPI, headache, numbness, paresthesia, seizure, tingling, tremors, focal weakness, syncope, dizziness, other Endocrine: Denies: no symptoms, see HPI, excessive sweating, flushing, intolerance to temperature, increased thirst, increased urine, unexplained weight loss, other Hematologic/Lymphatic: Denies: no symptoms, see HPI, anemia, blood clots, easy bleeding, easy bruising, swollen glands, diathesis, other All Other Systems: negative except mentioned in HPI Physical Exam General Appearance: WD/WN, no apparent distress, alert Lines, tubes and drains: peripheral HEENT: normocephalic, atraumatic, anicteric, mucous membranes moist, PERRL Neck: non-tender, normal alignment, supple, normal inspection, other - right clavical with prominence Respiratory/Chest: lungs clear, normal breath sounds, no respiratory distress, no accessory muscle use, other - bilateral lower costal chest wall tenderness and distal steral tenderness on exam. 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, no motor/sensory deficits, alert, oriented x 3, responsive Last 24 Hour Vital Signs Date Time Temp Pulse Resp B/P (MAP) Pulse Ox O2 Delivery O2 Flow Rate FiO2 03/13/18 17:15 98.4 92 22 106/61 94 Room Air 98.4 03/13/18 16:44 99.8 94 23 121/63 100 Room Air 211.6 03/13/18 16:14 94 23 121/63 100 Room Air 03/13/18 15:41 99.8 03/13/18 13:45 99.8 03/13/18 13:37 95 29 118/59 98 Room Air 03/13/18 12:27 99.8 111 20 125/74 95 Room Air 99.9 Laboratory Tests Test 03/13/18 12:40 03/13/18 14:25 White Blood Count 9.2 K/UL (4.8-10.8) Red Blood Count 4.37 M/UL (4.20-5.40) Hemoglobin 15.1 G/DL (12.0-16.0) Hematocrit 40.5 % (37.0-47.0) Mean Corpuscular Volume 93 FL (80-99) Mean Corpuscular Hemoglobin 34.5 PG (27.0-31.0) H Mean Corpuscular Hemoglobin Concent 37.3 G/DL (32.0-36.0) H Red Cell Distribution Width 10.5 % (11.6-14.8) L Platelet Count 182 K/UL (150-450) Mean Platelet Volume 8.1 FL (6.5-10.1) Neutrophils (%) (Auto) % (45.0-75.0) Lymphocytes (%) (Auto) % (20.0-45.0) Monocytes (%) (Auto) % (1.0-10.0) Eosinophils (%) (Auto) % (0.0-3.0) Basophils (%) (Auto) % (0.0-2.0) Differential Total Cells Counted 100 Neutrophils % (Manual) 75 % (45-75) Lymphocytes % (Manual) 7 % (20-45) L Monocytes % (Manual) 12 % (1-10) H Eosinophils % (Manual) 0 % (0-3) Basophils % (Manual) 0 % (0-2) Band Neutrophils 6 % (0-8) Platelet Estimate Adequate Platelet Morphology Normal Red Blood Cell Morphology Normal Sodium Level 139 MMOL/L (136-145) Potassium Level 4.1 MMOL/L (3.5-5.1) Chloride Level 101 MMOL/L (98-107) Carbon Dioxide Level 27 MMOL/L (21-32) Anion Gap 12 mmol/L (5-15) Blood Urea Nitrogen 13 mg/dL (7-18) Creatinine 0.5 MG/DL (0.55-1.30) L Estimat Glomerular Filtration Rate > 60 mL/min (>60) Glucose Level 103 MG/DL (74-106) Calcium Level 8.9 MG/DL (8.5-10.1) Total Bilirubin 0.5 MG/DL (0.2-1.0) Aspartate Amino Transf (AST/SGOT) 29 U/L (15-37) Alanine Aminotransferase (ALT/SGPT) 28 U/L (12-78) Alkaline Phosphatase 85 U/L (46-116) Troponin I 0.000 ng/mL (0.000-0.056) Total Protein 7.3 G/DL (6.4-8.2) Albumin 3.9 G/DL (3.4-5.0) Globulin 3.4 g/dL Albumin/Globulin Ratio 1.1 (1.0-2.7) Lipase 147 U/L (73-393) Urine Color Pale yellow Urine Appearance Clear Urine pH 8 (4.5-8.0) Urine Specific [place] 1.010 (1.005-1.035) Urine Protein Negative (NEGATIVE) Urine Glucose (UA) Negative (NEGATIVE) Urine Ketones Negative (NEGATIVE) Urine Occult Blood 3+ (NEGATIVE) H Urine Nitrite Negative (NEGATIVE) Urine Bilirubin Negative (NEGATIVE) Urine Urobilinogen Normal MG/DL (0.0-1.0) Urine Leukocyte Esterase 2+ (NEGATIVE) H Urine RBC 5-10 /HPF (0 - 2) H Urine WBC 2-4 /HPF (0 - 2) Urine Squamous Epithelial Cells Few /LPF (NONE/OCC) Urine Bacteria Occasional /HPF (NONE) Height (Feet): 5 Height (Inches): 1.00 Weight (Pounds): 172 Medications Current Medications Medications (Trade) Dose Ordered Sig/Ted Route PRN Reason Start Time Stop Time Status Last Admin Dose Admin Acetaminophen (Tylenol) 650 mg Q4H PRN ORAL Mild Pain (Pain Scale 1-3) 03/13/18 16:48 04/12/18 16:47 Dextrose (Dextrose 50%) 25 ml STAT PRN IV Hypoglycemia 03/13/18 16:49 04/12/18 16:48 Dextrose (Dextrose 50%) 50 ml STAT PRN IV Hypoglycemia 03/13/18 16:49 04/12/18 16:48 Dextrose/Sodium Chloride 1,000 ml @ 100 mls/hr Q10H IV 03/13/18 17:30 04/12/18 17:29 Diphenhydramine HCl (Benadryl) 25 mg Q6H PRN ORAL Itching/Pruritis 03/13/18 16:49 04/12/18 16:48 Docusate Sodium (Colace) 100 mg EVERY 12 HOURS ORAL 03/13/18 21:00 04/12/18 20:59 Escitalopram Oxalate (Lexapro) 10 mg DAILY ORAL 03/14/18 09:00 04/13/18 08:59 Famotidine (Pepcid) 40 mg DAILY ORAL 03/14/18 09:00 04/13/18 08:59 Gabapentin (Neurontin) 600 mg BEDTIME ORAL 03/13/18 21:00 04/12/18 20:59 Heparin Sodium (Porcine) (Heparin 5000 units/ml) 5,000 units EVERY 8 HOURS SUBQ 03/13/18 22:00 04/12/18 21:59 Ondansetron HCl (Zofran) 4 mg Q6H PRN IVP Nausea & Vomiting 03/13/18 16:49 04/12/18 16:48 Regadenoson (Lexiscan) 0.4 mg ONCE PRN IV STRESS TEST 03/14/18 06:00 03/14/18 23:59 Trazodone HCl (Desyrel) 100 mg BEDTIME ORAL 03/13/18 21:00 04/12/18 20:59 Assessment/Plan Problem List: (1) Abdominal pain Assessment & Plan: 62F with history as above. atypical pain distribution and no significant findings on initial tests. epigastric pain with radiation to back possible pancreatitis but lipase normal; may have resolved?. sternal and costal pain could be possible costochondritis given distribution. possible recent episode of enteritis. CT reviewed and no obstructive pattern noted. low grade fevers, tachy at times, otherwise HD stable. -Appreciate cardiology input for possible cardiac etiology -Recommend GI consult for possible gastritis vs ulcer -Abdominal ultrasound to evaluate gallbladder . distended on CT but need US to ensure not GB in nature -NPO for now with IV fluids -IV abx -PPI -thank you for this consultation. will follow with recs. ICD Codes: R10.9 - Unspecified abdominal pain SNOMED: [id number] Qualifiers: Qualified Codes: R10.13 - Epigastric pain Status: stable [place] March 13, 2018 17:53
[2018-03-13] MEDS ORDERED: Pantoprazole Inj IVP SCH (18:30)
[2018-03-13] MEDS: D5NS 1,000 ML IV SCH (18:31)
[2018-03-13 20:00] VITALS: BP 104/55
[2018-03-13] MEDS ORDERED: Lidocaine 2% Visc 15ml soln ORAL SCH (20:00)
[2018-03-13] MEDS ORDERED: Mylanta II UD 30ml ORAL SCH (20:00)
[2018-03-13] MEDS: Docusate 100mg cap ORAL SCH (20:25)
[2018-03-13] MEDS ORDERED: TraZODone 100mg tab ORAL SCH (21:00)
[2018-03-13] MEDS: Heparin 5000 units/ml inj SUBQ SCH (21:46)
--- NOTE | 2018-03-13 23:15 | History and Physical Report ---
DATE OF ADMISSION: 03/13/2018 DATE OF ADMISSION: March 13, 2018 REASON FOR ADMISSION: 1. Abdominal pain. 2. Viral gastroenteritis/partial ileus. 3. Chest pain. HISTORY OF PRESENT ILLNESS: The patient is a pleasant 62-year-old female, who approximately 9 days ago started developing some abdominal pain, nausea, vomiting, and diarrhea. Throughout this nausea and vomiting, she started developing chest pain. She did present to the emergency room a few days back. Since being discharged from there continues to have abdominal pain, nausea, vomiting. She says the abdominal pain, nausea, vomiting, and diarrhea have been constant which led to the chest pain. She has not been feeling well. She feels weak and tired and has not had any bowel movements or flatus over the last 24 to 36 hours prior to this she was having diarrhea 3 to 4 times per day. PAST MEDICAL HISTORY: 1. Hypertension. 2. Depression. 3. Neuropathy PAST SURGICAL HISTORY: One section 30 years ago. HOME MEDICATIONS: Reviewed on medication reconciliation list. ALLERGIES: No known drug allergies. SOCIAL HISTORY: No tobacco, alcohol, illicit drug use. REVIEW OF SYSTEMS: NEUROLOGIC: The patient denies headache, change in vision, syncope or presyncopal episodes. CARDIOVASCULAR: The patient was having some chest pressure and pain. No palpitations. PULMONARY: No difficulty breathing, productive cough or sputum. GASTROINTESTINAL/GENITOURINARY: The patient having nausea, vomiting, and diarrhea with diffuse abdominal pain. ENDOCRINOLOGY: No night sweats, fevers or chills. MUSCULOSKELETAL: The patient feeling weak, tired, and fatigue. PHYSICAL EXAMINATION: VITAL SIGNS: Blood pressure 121/63, respiratory rate 23, pulse 94, temperature 99.8, 100% oxygen saturation on room air. GENERAL: The patient is awake, in mild distress. HEENT: Extraocular muscles intact. NECK: No lymphadenopathy noted. CARDIOVASCULAR: S1 and S2. Regular rate. No rubs or gallops. No murmurs. ABDOMINAL: Nondistended and nontender, very quiet bowel sounds. Mild tenderness to palpation in all 4 quadrants. EXTREMITIES: No edema. Fair pedal pulses. SKIN: No rashes. LABORATORY DATA: Dated March 13, 2018 sodium 139, potassium 4.1, BUN 13, creatinine 0.5, calcium 8.9. AST and ALT within normal range. Troponin-I is 0. Lipase 147. Hemoglobin 15.1, white cell count 9.2, platelet count 182. ASSESSMENT AND PLAN: 1. Atypical chest pain/ACS with history of pulmonary disease per family. Cardiology has been consulted for further evaluation and management. First troponins were 0. Defer management to Cardiology. 2. Abdominal pain, at this time it is suspicious for mild gastroenteritis. I have requested assistance from Gastroenterology and General surgery to ensure that there is no ileus/partial small bowel obstruction. We will place patient on NPO for the next 24 hours. 3. Depression, we will continue Lexapro. 4. Neuropathy, will continue gabapentin. 5. DVT prophylaxis with heparin subcutaneous 5000 units every 8 hours. Malachi Quijano MD DR: Viji JOB#: [id number] CC: DARÍO
[2018-03-14] VITALS: BP 104/58
--- NOTE | 2018-03-14 00:45 | Consultation ---
DATE OF CONSULTATION: 03/13/2018 CARDIOLOGY CONSULTATION CONSULTING PHYSICIAN: Lucian Jarrett M.D. REFERRING PHYSICIAN: Pito Wilder M.D. REASON FOR CONSULTATION: Chest pain, epigastric pain, and hypertension. HISTORY OF PRESENT ILLNESS: The patient is a 62-year-old [place] lady with history of depression, who came to the emergency room complaining of abdominal pain and vomiting of two days. The patient also complained of epigastric pain with radiation to the back. The patient was in the emergency room few days ago with chest pain, but she signed against medical advice. The patient came back to the emergency room for further evaluation and management. REVIEW OF SYSTEMS: Review of systems was negative other than what was mentioned in the history of present illness. PAST MEDICAL HISTORY: 1. Hypertension. 2. Depression. FAMILY HISTORY: Noncontributory. SOCIAL HISTORY: She lives at home. Does not smoke or drink alcohol. MEDICATION: Includes only Lexapro. PHYSICAL EXAMINATION: VITAL SIGNS: Blood pressure 120/63, pulse 94, respirations 23, and temperature is 99.8. HEAD AND NECK: Shows no JVD. LUNGS: Clear. CARDIOVASCULAR: Shows regular S1 and S2 with no gallop or murmur. ABDOMEN: Soft. EXTREMITIES: No pitting edema. DIAGNOSTIC AND LABORATORY DATA: EKG showed sinus rhythm without bundle-branch block and possible old inferior wall myocardial infarction. White count 9.2, hemoglobin 15.1, hematocrit of , and platelet 182. Sodium 139, potassium 4.1, BUN of 13, creatinine of 0.5, and glucose of 103. The first troponin is negative. ASSESSMENT AND PLAN: 1. Atypical chest pain. EKG is nondiagnostic without bundle-branch block. The first set of cardiac enzymes are negative. We will completely rule out NC protocol. We will get an echocardiogram and if abdominal pain improves, schedule the patient for a stress test on Thursday. 2. Abdominal pain. Further evaluation by Dr. Carr, who feels that she probably has constipation. 3. Depression. Thank you very much, Dr. Wilder, for allowing me to participate in the care of this patient. Please do not hesitate to contact me for any questions regarding my evaluation. Lucian Jarrett M.D. DR: DEON JOB#: [id number] CC:
[2018-03-14] MEDS: D5NS 1,000 ML IV SCH ×3 (03:45→23:30)
[2018-03-14 04:00] VITALS: BP 105/56
[2018-03-14 05:33] LABS: BASOPHILS % (AUTO) 0.6 % (0.0-2.0); EOSINOPHILS % (AUTO) 0.4 % (0.0-3.0); HEMATOCRIT 35.7 % (37.0-47.0); HEMOGLOBIN 12.9 G/DL (12.0-16.0); MEAN CORPUSCULAR VOLUME 93 FL (80-99); MONOCYTES % (AUTO) 14.1 % (1.0-10.0); PLATELET COUNT 156 K/UL (150-450); RED BLOOD COUNT 3.86 M/UL (4.20-5.40); RED CELL DISTRIBUTION WIDTH 10.8 % (11.6-14.8); WHITE BLOOD COUNT 5.1 K/UL (4.8-10.8)
[2018-03-14 05:55] LABS: ANION GAP 7 mmol/L (5-15); BLOOD UREA NITROGEN 11 mg/dL (7-18); CALCIUM 8.3 MG/DL (8.5-10.1); CARBON DIOXIDE 29 MMOL/L (21-32); CHLORIDE 105 MMOL/L (98-107); CHOLESTEROL 140 MG/DL (< 200); CREATININE 0.6 MG/DL (0.55-1.30); HDL CHOLESTEROL 54 MG/DL (40-60); POTASSIUM 3.6 MMOL/L (3.5-5.1); SODIUM 141 MMOL/L (136-145); TRIGLYCERIDES 65 MG/DL (30-150)
[2018-03-14 05:57] LABS: ALANINE AMINOTRANSFERASE 19 U/L (12-78); ALBUMIN 3.1 G/DL (3.4-5.0); ALBUMIN/GLOBULIN RATIO 0.9 (1.0-2.7); ALKALINE PHOSPHATASE 71 U/L (46-116); ANION GAP 9 mmol/L (5-15); ASPARTATE AMINO TRANSFERASE 15 U/L (15-37); BILIRUBIN,TOTAL 0.5 MG/DL (0.2-1.0); BLOOD UREA NITROGEN 10 mg/dL (7-18); CALCIUM 8.1 MG/DL (8.5-10.1); CARBON DIOXIDE 28 MMOL/L (21-32); CHLORIDE 104 MMOL/L (98-107); CREATININE 0.6 MG/DL (0.55-1.30); POTASSIUM 3.6 MMOL/L (3.5-5.1); SODIUM 141 MMOL/L (136-145)
[2018-03-14] MEDS: Heparin 5000 units/ml inj SUBQ SCH ×3 (06:00→22:00)
[2018-03-14] MEDS ORDERED: Lexiscan 0.4mg/5ml syringe IV PRN (06:00)
[2018-03-14 06:02] LABS: AMYLASE 46 U/L (25-115)
[2018-03-14 08:00] VITALS: BP 111/59
[2018-03-14] MEDS ORDERED: Morphine Sulfate 4mg/ml Inj IVP PRN (08:45)
--- NOTE | 2018-03-14 08:52 | Nephrology Progress Note ---
Assessment/Plan Assessment/Plan 1. 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 Depression- on elavil 3. Neuropathy- gabapentin 4. DVT prophylaxis- heparin sub q Subjective Date patient seen: March 14, 2018 Time patient seen: 08:48 Gastrointestinal/Abdominal: Reports: abdominal pain, poor appetite Allergies: Coded Allergies: No Known Allergies (Unverified , 10/10/15) All Systems: reviewed and negative except above Subjective Patient feeling better. Still with mild abdominal pain Objective Last 24 Hour Vital Signs Date Time Temp Pulse Resp B/P (MAP) Pulse Ox O2 Delivery O2 Flow Rate FiO2 03/14/18 04:00 98.3 77 18 105/56 93 Room Air 98.3 03/14/18 04:00 77 03/14/18 00:00 79 03/14/18 00:00 98.9 78 18 104/58 100 Room Air 98.9 03/13/18 20:00 84 03/13/18 20:00 99.4 87 22 104/55 95 Room Air 99.4 03/13/18 17:15 98.4 92 22 106/61 94 Room Air 98.4 03/13/18 16:44 99.8 94 23 121/63 100 Room Air 211.6 03/13/18 16:14 94 23 121/63 100 Room Air 03/13/18 15:41 99.8 03/13/18 13:45 99.8 03/13/18 13:37 95 29 118/59 98 Room Air 03/13/18 12:27 99.8 111 20 125/74 95 Room Air 99.9 Intake and Output 03/13/18 03/14/18 19:00 07:00 Intake Total 100 ml 800 ml Balance 100 ml 800 ml Intake Oral 0 ml IV Total 100 ml 800 ml Laboratory Tests 03/13/18 12:40: White Blood Count 9.2, Red Blood Count 4.37, Hemoglobin 15.1, Hematocrit 40.5, Mean Corpuscular Volume 93, Mean Corpuscular Hemoglobin 34.5H, Mean Corpuscular Hemoglobin Concent 37.3H, Red Cell Distribution Width 10.5L, Platelet Count 182 , Mean Platelet Volume 8.1, Neutrophils (%) (Auto) , Lymphocytes (%) (Auto) , Monocytes (%) (Auto) , Eosinophils (%) (Auto) , Basophils (%) (Auto) , Differential Total Cells Counted 100, Neutrophils % (Manual) 75, Lymphocytes % ( Manual) 7L, Monocytes % (Manual) 12H, Eosinophils % (Manual) 0, Basophils % ( Manual) 0, Band Neutrophils 6, Platelet Estimate Adequate, Platelet Morphology Normal, Red Blood Cell Morphology Normal, Sodium Level 139, Potassium Level 4.1 , Chloride Level 101, Carbon Dioxide Level 27, Anion Gap 12, Blood Urea Nitrogen 13, Creatinine 0.5L, Estimat Glomerular Filtration Rate > 60, Glucose Level 103, Calcium Level 8.9, Total Bilirubin 0.5, Aspartate Amino Transf (AST/ SGOT) 29, Alanine Aminotransferase (ALT/SGPT) 28, Alkaline Phosphatase 85, Troponin I 0.000, Total Protein 7.3, Albumin 3.9, Globulin 3.4, Albumin/ Globulin Ratio 1.1, Lipase 147 03/13/18 14:25: Urine Color Pale yellow, Urine Appearance Clear, Urine pH 8, Urine Specific [place] 1.010, Urine Protein Negative, Urine Glucose (UA) Negative, Urine Ketones Negative, Urine Occult Blood 3+H, Urine Nitrite Negative, Urine Bilirubin Negative, Urine Urobilinogen Normal, Urine Leukocyte Esterase 2+H, Urine RBC 5-10H, Urine WBC 2-4, Urine Squamous Epithelial Cells Few, Urine Bacteria Occasional 03/13/18 19:15: Troponin I 0.000 03/14/18 03:10: White Blood Count 5.1, Red Blood Count 3.86L, Hemoglobin 12.9, Hematocrit 35.7L , Mean Corpuscular Volume 93, Mean Corpuscular Hemoglobin 33.3H, Mean Corpuscular Hemoglobin Concent 36.0, Red Cell Distribution Width 10.8L, Platelet Count 156, Mean Platelet Volume 7.7, Neutrophils (%) (Auto) 68.0, Lymphocytes (%) (Auto) 17.0L, Monocytes (%) (Auto) 14.1H, Eosinophils (%) (Auto ) 0.4, Basophils (%) (Auto) 0.6, Sodium Level 141, Potassium Level 3.6, Chloride Level 104, Carbon Dioxide Level 28, Anion Gap 9, Blood Urea Nitrogen 10 , Creatinine 0.6, Estimat Glomerular Filtration Rate > 60, Glucose Level 94, Calcium Level 8.1L, Total Bilirubin 0.5, Aspartate Amino Transf (AST/SGOT) 15, Alanine Aminotransferase (ALT/SGPT) 19, Alkaline Phosphatase 71, Troponin I 0.000, Total Protein 6.4, Albumin 3.1L, Globulin 3.3, Albumin/Globulin Ratio 0.9L, Lipase 146, Pro-B-Type Natriuretic Peptide 204H, Triglycerides Level 65, Cholesterol Level 140, LDL Cholesterol 79, HDL Cholesterol 54, Cholesterol/HDL Ratio 2.6L, Amylase Level 46 Height (Feet): 5 Height (Inches): 1.00 Weight (Pounds): 172 General Appearance: WD/WN, no apparent distress EENT: PERRL/EOMI, normal ENT inspection Neck: non-tender, normal alignment Cardiovascular: normal peripheral pulses, normal rate Respiratory/Chest: chest wall non-tender, lungs clear Abdomen: hypoactive bowel sounds, tender Edema: no edema noted Arm (L), no edema noted Arm (R), no edema noted Leg (L), no edema noted Leg (R), no edema noted Pedal (L), no edema noted Pedal (R), no edema noted Generalized Malachi Quijano M.D. March 14, 2018 08:52
[2018-03-14] MEDS: Docusate 100mg cap ORAL SCH ×2 (09:19→20:41)
[2018-03-14] MEDS: Pantoprazole Inj IVP SCH (09:20)
--- NOTE | 2018-03-14 11:36 | Cardiology Report ---
APPROVED REPORT EKG Measurement Heart [id number] CT [id number] [id number] Normal sinus rhythm Right bundle branch block Abnormal ECG
--- NOTE | 2018-03-14 11:46 | Cardiology Report ---
APPROVED REPORT EKG Measurement Heart [id number] ID [id number] Normal sinus rhythm Possible Left atrial enlargement Indeterminate axis Right bundle branch block Inferior infarct, age undetermined Abnormal ECG
[2018-03-14 12:00] VITALS: BP 96/50
--- NOTE | 2018-03-14 12:07 | Cardiology Report ---
APPROVED REPORT EXAM: Two-dimensional and M-mode echocardiogram with Doppler and color Doppler. INDICATION Chest Pain M-Mode DIMENSIONS IVSd1.1 (0.7-1.1cm)Left Atrium (MM)4.4 (1.6-4.0cm) LVDd4.0 (3.5-5.6cm)Aortic Root3.4 (2.0-3.7cm) PWd1.0 (0.7-1.1cm)Aortic Cusp Exc.1.5 (1.5-2.0cm) LVDs2.7 (2.5-4.0cm) PWs1.2 cm Normal left ventricular chamber size, systolic function and wall motion. Left ventricular ejection fraction estimated to be 60 %. Borderline left ventricular hypertrophy. Anterior Echo-free space, may be due to pericardial fat or effusion. Mild right atrial enlargement. Left atrial size at upper limits of normal. Right ventricular chamber sizes is within normal limits. Focal aortic valve sclerosis with adequate cusp excursion. Mildly thickened mitral valve leaflets with normal excursion. Mild mitral annulus and aortic root calcification. Normal pulmonic valve structure. Normal tricuspid valve structure. IVC is normal in size with physiological collapse. A color flow and spectral Doppler study was performed and revealed: Moderate aortic insufficiency. Mild mitral regurgitation. Mitral diastolic velocities suggest mild left ventricular diastolic dysfunction (Grade I). Mild tricuspid regurgitation. Tricuspid systolic velocities suggests peak right ventricular systolic pressure of 45 mmHg, consistent with moderate pulmonary hypertension. Trace pulmonic regurgitation present.
--- NOTE | 2018-03-14 13:18 | Cardiac Electrophysiology PN ---
Assessment/Plan Assessment/Plan 1. Atypical chest pain. EKG is nondiagnostic without bundle-branch block. Ruled out OK. Echocardiogram EF 60%. Awaiting stress test on Thursday. 2. Abdominal pain. Further evaluation by Dr. Carr, who feels that she probably has constipation. 3. Depression. SUZAN RN Subjective Subjective Feeling better. No CP or SOB. at bedside. Objective Last 24 Hour Vital Signs Date Time Temp Pulse Resp B/P (MAP) Pulse Ox O2 Delivery O2 Flow Rate FiO2 03/14/18 10:19 98.3 03/14/18 08:00 98.3 85 19 111/59 97 Room Air 98.3 03/14/18 08:00 73 03/14/18 04:00 98.3 77 18 105/56 93 Room Air 98.3 03/14/18 04:00 77 03/14/18 00:00 79 03/14/18 00:00 98.9 78 18 104/58 100 Room Air 98.9 03/13/18 20:00 84 03/13/18 20:00 99.4 87 22 104/55 95 Room Air 99.4 03/13/18 17:15 98.4 92 22 106/61 94 Room Air 98.4 03/13/18 16:44 99.8 94 23 121/63 100 Room Air 211.6 03/13/18 16:14 94 23 121/63 100 Room Air 03/13/18 15:41 99.8 03/13/18 13:45 99.8 03/13/18 13:37 95 29 118/59 98 Room Air Intake and Output 03/13/18 03/14/18 19:00 07:00 Intake Total 100 ml 800 ml Balance 100 ml 800 ml Intake Oral 0 ml IV Total 100 ml 800 ml Laboratory Tests Test 03/13/18 14:25 03/13/18 19:15 03/14/18 03:10 Urine Color Pale yellow Urine Appearance Clear Urine pH 8 (4.5-8.0) Urine Specific [place] 1.010 (1.005-1.035) Urine Protein Negative (NEGATIVE) Urine Glucose (UA) Negative (NEGATIVE) Urine Ketones Negative (NEGATIVE) Urine Occult Blood 3+ (NEGATIVE) H Urine Nitrite Negative (NEGATIVE) Urine Bilirubin Negative (NEGATIVE) Urine Urobilinogen Normal MG/DL (0.0-1.0) Urine Leukocyte Esterase 2+ (NEGATIVE) H Urine RBC 5-10 /HPF (0 - 2) H Urine WBC 2-4 /HPF (0 - 2) Urine Squamous Epithelial Cells Few /LPF (NONE/OCC) Urine Bacteria Occasional /HPF (NONE) Troponin I 0.000 ng/mL (0.000-0.056) 0.000 ng/mL (0.000-0.056) White Blood Count 5.1 K/UL (4.8-10.8) Red Blood Count 3.86 M/UL (4.20-5.40) L Hemoglobin 12.9 G/DL (12.0-16.0) Hematocrit 35.7 % (37.0-47.0) L Mean Corpuscular Volume 93 FL (80-99) Mean Corpuscular Hemoglobin 33.3 PG (27.0-31.0) H Mean Corpuscular Hemoglobin Concent 36.0 G/DL (32.0-36.0) Red Cell Distribution Width 10.8 % (11.6-14.8) L Platelet Count 156 K/UL (150-450) Mean Platelet Volume 7.7 FL (6.5-10.1) Neutrophils (%) (Auto) 68.0 % (45.0-75.0) Lymphocytes (%) (Auto) 17.0 % (20.0-45.0) L Monocytes (%) (Auto) 14.1 % (1.0-10.0) H Eosinophils (%) (Auto) 0.4 % (0.0-3.0) Basophils (%) (Auto) 0.6 % (0.0-2.0) Sodium Level 141 MMOL/L (136-145) Potassium Level 3.6 MMOL/L (3.5-5.1) Chloride Level 104 MMOL/L (98-107) Carbon Dioxide Level 28 MMOL/L (21-32) Anion Gap 9 mmol/L (5-15) Blood Urea Nitrogen 10 mg/dL (7-18) Creatinine 0.6 MG/DL (0.55-1.30) Estimat Glomerular Filtration Rate > 60 mL/min (>60) Glucose Level 94 MG/DL (74-106) Calcium Level 8.1 MG/DL (8.5-10.1) L Total Bilirubin 0.5 MG/DL (0.2-1.0) Aspartate Amino Transf (AST/SGOT) 15 U/L (15-37) Alanine Aminotransferase (ALT/SGPT) 19 U/L (12-78) Alkaline Phosphatase 71 U/L (46-116) Pro-B-Type Natriuretic Peptide 204 pg/mL (0-125) H Total Protein 6.4 G/DL (6.4-8.2) Albumin 3.1 G/DL (3.4-5.0) L Globulin 3.3 g/dL Albumin/Globulin Ratio 0.9 (1.0-2.7) L Triglycerides Level 65 MG/DL (30-150) Cholesterol Level 140 MG/DL (< 200) LDL Cholesterol 79 mg/dL (<100) HDL Cholesterol 54 MG/DL (40-60) Cholesterol/HDL Ratio 2.6 (3.3-4.4) L Amylase Level 46 U/L (25-115) Lipase 146 U/L (73-393) Objective HEAD AND NECK: Shows no JVD. LUNGS: Clear. CARDIOVASCULAR: Shows regular S1 and S2 with no gallop or murmur. ABDOMEN: Soft. EXTREMITIES: No pitting edema. Lucian Jarrett MD March 14, 2018 13:18
--- NOTE | 2018-03-14 13:59 | General Surgery Progress Note ---
General Surgery-Progress Note Subjective Symptoms: improved Additional Comments abdominal pain much improved today. feels some vague discomfort but much improved as compared to yesterday. no n/v/f/c. Objective Last 24 Hour Vital Signs Date Time Temp Pulse Resp B/P (MAP) Pulse Ox O2 Delivery O2 Flow Rate FiO2 03/14/18 12:00 65 03/14/18 12:00 98.0 70 18 96/50 95 Room Air 98.0 03/14/18 10:19 98.3 03/14/18 08:00 98.3 85 19 111/59 97 Room Air 98.3 03/14/18 08:00 73 03/14/18 04:00 98.3 77 18 105/56 93 Room Air 98.3 03/14/18 04:00 77 03/14/18 00:00 79 03/14/18 00:00 98.9 78 18 104/58 100 Room Air 98.9 03/13/18 20:00 84 03/13/18 20:00 99.4 87 22 104/55 95 Room Air 99.4 03/13/18 17:15 98.4 92 22 106/61 94 Room Air 98.4 03/13/18 16:44 99.8 94 23 121/63 100 Room Air 211.6 03/13/18 16:14 94 23 121/63 100 Room Air 03/13/18 15:41 99.8 I&O Intake and Output 03/13/18 03/14/18 19:00 07:00 Intake Total 100 ml 800 ml Balance 100 ml 800 ml Intake Oral 0 ml IV Total 100 ml 800 ml Cardiovascular: RSR Respiratory: clear Abdomen: soft, flat, non-tender, present bowel sounds Extremities: no edema, no tenderness, no cyanosis Laboratory Tests Test 03/13/18 14:25 03/13/18 19:15 03/14/18 03:10 Urine Color Pale yellow Urine Appearance Clear Urine pH 8 (4.5-8.0) Urine Specific [place] 1.010 (1.005-1.035) Urine Protein Negative (NEGATIVE) Urine Glucose (UA) Negative (NEGATIVE) Urine Ketones Negative (NEGATIVE) Urine Occult Blood 3+ (NEGATIVE) H Urine Nitrite Negative (NEGATIVE) Urine Bilirubin Negative (NEGATIVE) Urine Urobilinogen Normal MG/DL (0.0-1.0) Urine Leukocyte Esterase 2+ (NEGATIVE) H Urine RBC 5-10 /HPF (0 - 2) H Urine WBC 2-4 /HPF (0 - 2) Urine Squamous Epithelial Cells Few /LPF (NONE/OCC) Urine Bacteria Occasional /HPF (NONE) Troponin I 0.000 ng/mL (0.000-0.056) 0.000 ng/mL (0.000-0.056) White Blood Count 5.1 K/UL (4.8-10.8) Red Blood Count 3.86 M/UL (4.20-5.40) L Hemoglobin 12.9 G/DL (12.0-16.0) Hematocrit 35.7 % (37.0-47.0) L Mean Corpuscular Volume 93 FL (80-99) Mean Corpuscular Hemoglobin 33.3 PG (27.0-31.0) H Mean Corpuscular Hemoglobin Concent 36.0 G/DL (32.0-36.0) Red Cell Distribution Width 10.8 % (11.6-14.8) L Platelet Count 156 K/UL (150-450) Mean Platelet Volume 7.7 FL (6.5-10.1) Neutrophils (%) (Auto) 68.0 % (45.0-75.0) Lymphocytes (%) (Auto) 17.0 % (20.0-45.0) L Monocytes (%) (Auto) 14.1 % (1.0-10.0) H Eosinophils (%) (Auto) 0.4 % (0.0-3.0) Basophils (%) (Auto) 0.6 % (0.0-2.0) Sodium Level 141 MMOL/L (136-145) Potassium Level 3.6 MMOL/L (3.5-5.1) Chloride Level 104 MMOL/L (98-107) Carbon Dioxide Level 28 MMOL/L (21-32) Anion Gap 9 mmol/L (5-15) Blood Urea Nitrogen 10 mg/dL (7-18) Creatinine 0.6 MG/DL (0.55-1.30) Estimat Glomerular Filtration Rate > 60 mL/min (>60) Glucose Level 94 MG/DL (74-106) Calcium Level 8.1 MG/DL (8.5-10.1) L Total Bilirubin 0.5 MG/DL (0.2-1.0) Aspartate Amino Transf (AST/SGOT) 15 U/L (15-37) Alanine Aminotransferase (ALT/SGPT) 19 U/L (12-78) Alkaline Phosphatase 71 U/L (46-116) Pro-B-Type Natriuretic Peptide 204 pg/mL (0-125) H Total Protein 6.4 G/DL (6.4-8.2) Albumin 3.1 G/DL (3.4-5.0) L Globulin 3.3 g/dL Albumin/Globulin Ratio 0.9 (1.0-2.7) L Triglycerides Level 65 MG/DL (30-150) Cholesterol Level 140 MG/DL (< 200) LDL Cholesterol 79 mg/dL (<100) HDL Cholesterol 54 MG/DL (40-60) Cholesterol/HDL Ratio 2.6 (3.3-4.4) L Amylase Level 46 U/L (25-115) Lipase 146 U/L (73-393) Plan Problems: (1) Abdominal pain Assessment & Plan: 62F with history as above. atypical pain distribution and no significant findings on initial tests. epigastric pain with radiation to back possible pancreatitis but lipase normal; may have resolved?. sternal and costal pain could be possible costochondritis given distribution. possible recent episode of enteritis. CT reviewed and no obstructive pattern noted. Echo reviewed Afebrile, HD stable, pain improved. laura/lip normal unlikely pancreas in nature. labs normal. exam benign. possible differential includes constipation or possible gastritis vs ulcer? -Appreciate cardiology input for possible cardiac etiology -Recommend GI consult for possible gastritis vs ulcer -Abdominal ultrasound to evaluate gallbladder . distended on CT but need US to ensure not GB in nature -NPO for now with IV fluids -IV abx -PPI -thank you for this consultation. will follow with recs. Rock Carr March 14, 2018 13:59
[2018-03-14] MEDS: Lactulose 20gm/30ml UDC ORAL SCH ×3 (15:12→20:33)
[2018-03-14 16:00] VITALS: BP 111/59
[2018-03-14] MEDS ORDERED: D5NS 1000ml IV ONE (16:10)
[2018-03-14 20:00] VITALS: BP 111/67
--- NOTE | 2018-03-14 21:15 | Consultation ---
DATE OF CONSULTATION: 03/14/2018 GASTROENTEROLOGY CONSULTATION CHIEF COMPLAINT: I was asked to see this patient by Dr. Pito Wilder for evaluation of gastrointestinal symptoms. HISTORY OF PRESENT ILLNESS: The patient is a 62-year-old [place] woman with a two-day history of epigastric abdominal discomfort more on the left side with nausea and vomiting. She had about small bout of diarrhea lasting about a day or two about a week ago. However, there are no other contacts at home on the same symptoms. She does take long-term Dexilant dose for gastroesophageal reflux. Her last endoscopy and colonoscopy was about 10 years ago. She denies any hematochezia. There is a family history of colon cancer in her father. She has not had a colonoscopy for at least 10 years. PAST MEDICAL HISTORY: History of depression and history of neuropathy. SOCIAL HISTORY: The patient does not smoke or drink alcohol. FAMILY HISTORY: Noncontributory except for father with colon cancer. REVIEW OF SYSTEMS: Negative. PHYSICAL EXAMINATION: GENERAL: Pleasant [place]ian woman seen in her room with family at bedside. HEENT: Normocephalic and atraumatic. Sclerae are anicteric. Oropharynx is clear. NECK: Supple. CHEST: Clear to auscultation. CARDIOVASCULAR: Revealed a regular rate. ABDOMEN: Soft with good bowel sounds. There is some mild epigastric and left upper quadrant tenderness to palpation without guarding or rebound. EXTREMITIES: Revealed no edema. NEUROLOGIC: Grossly nonfocal. LABORATORY DATA: Laboratory data were noted. ASSESSMENT: This patient presents with symptoms of gastroenteritis with nausea, vomiting, and epigastric abdominal pain. She is significantly improved today. She has had no nausea and vomiting and her pain is better. I suspect that the cause is viral and transient and should resolve spontaneously. Her CBC shows normal white count and electrolytes are also not significantly impaired. She can be started back on her diet starting with clear liquids and observed conservatively. Should her symptoms persist or return, then further evaluation with imaging and/or endoscopy can be considered. RECOMMENDATIONS: Per above discussion and per orders written in the chart. Thank you for asking me to participate in the care of this patient. Magaly Hardin M.D. DR: Carlitos JOB#: [id number] CC:
[2018-03-15] VITALS: BP 101/57
[2018-03-15 04:00] VITALS: BP 111/67
[2018-03-15] MEDS: Heparin 5000 units/ml inj SUBQ SCH ×3 (05:40→21:41)
[2018-03-15 08:00] VITALS: BP 108/50
[2018-03-15] MEDS: Docusate 100mg cap ORAL SCH ×2 (08:08→20:44)
[2018-03-15] MEDS: Pantoprazole Inj IVP SCH (08:08)
--- NOTE | 2018-03-15 09:12 | Nephrology Progress Note ---
Assessment/Plan Assessment/Plan 1. Abdominal Pain- appreciate Gen Surg and GI assistance - improved. 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 Depression- on elavil 3. Neuropathy- gabapentin 4. DVT prophylaxis- heparin sub q 5. Chest Pain- stress test today Subjective Date patient seen: March 15, 2018 Time patient seen: 09:10 ROS Limited/Unobtainable: No Gastrointestinal/Abdominal: Reports: abdominal pain Allergies: Coded Allergies: No Known Allergies (Unverified , 10/10/15) All Systems: reviewed and negative except above Subjective Patient to have stress test today. Abdominal pain slightly improved. Bim constipated Objective Last 24 Hour Vital Signs Date Time Temp Pulse Resp B/P (MAP) Pulse Ox O2 Delivery O2 Flow Rate FiO2 03/15/18 04:00 98.2 78 20 111/67 96 Room Air 98.2 03/15/18 04:00 66 03/15/18 00:00 65 03/15/18 00:00 98.3 69 18 101/57 98 Room Air 98.3 03/14/18 20:00 81 03/14/18 20:00 98.2 78 20 111/67 96 Room Air 98.2 03/14/18 16:00 68 03/14/18 16:00 98.3 85 19 111/59 97 Room Air 98.3 03/14/18 12:00 65 03/14/18 12:00 98.0 70 18 96/50 95 Room Air 98.0 03/14/18 10:19 98.3 Intake and Output 03/14/18 03/15/18 19:00 07:00 Intake Total 500 ml 1000 ml Balance 500 ml 1000 ml Intake Oral 0 ml IV Total 500 ml 1000 ml # Voids 3 2 # Bowel Movements 1 Height (Feet): 5 Height (Inches): 1.00 Weight (Pounds): 172 General Appearance: WD/WN, no apparent distress, alert EENT: PERRL/EOMI, normal ENT inspection Cardiovascular: normal peripheral pulses, normal rate Respiratory/Chest: chest wall non-tender, lungs clear, normal breath sounds Abdomen: normal bowel sounds, non tender, soft Edema: no edema noted Arm (L), no edema noted Arm (R), no edema noted Leg (L), no edema noted Leg (R), no edema noted Pedal (L), no edema noted Pedal (R), no edema noted Generalized Malachi Quijano M.D. March 15, 2018 09:12
[2018-03-15 09:53] LABS: BASOPHILS % (AUTO) 0.6 % (0.0-2.0); EOSINOPHILS % (AUTO) 3.8 % (0.0-3.0); HEMATOCRIT 35.7 % (37.0-47.0); HEMOGLOBIN 12.8 G/DL (12.0-16.0); LYMPHOCYTES % (AUTO) 32.8 % (20.0-45.0); MEAN CORPUSCULAR VOLUME 94 FL (80-99); NEUTROPHILS % (AUTO) 44.8 % (45.0-75.0); PLATELET COUNT 146 K/UL (150-450); RED BLOOD COUNT 3.81 M/UL (4.20-5.40); RED CELL DISTRIBUTION WIDTH 10.5 % (11.6-14.8); WHITE BLOOD COUNT 4.3 K/UL (4.8-10.8)
[2018-03-15 10:19] LABS: ANION GAP 7 mmol/L (5-15); BLOOD UREA NITROGEN 5 mg/dL (7-18); CALCIUM 8.4 MG/DL (8.5-10.1); CARBON DIOXIDE 28 MMOL/L (21-32); CHLORIDE 108 MMOL/L (98-107); CREATININE 0.6 MG/DL (0.55-1.30); POTASSIUM 3.5 MMOL/L (3.5-5.1); SODIUM 143 MMOL/L (136-145)
--- NOTE | 2018-03-15 10:27 | GI Progress Note ---
Assessment/Plan Problems: (1) Gastroenteritis ICD Codes: K52.9 - Noninfective gastroenteritis and colitis, unspecified SNOMED: 15333403 (2) Abdominal pain ICD Codes: R10.9 - Unspecified abdominal pain SNOMED: 31854388 Qualifiers: Qualified Codes: R10.13 - Epigastric pain Status: stable Status Narrative Discussed with Dr. Alaniz. Assessment/Plan N/V resolved denies abdominal pain symptomatic treatment stress test today advance diet as tolerated zofran prn bowel regime fu labs outpatient GI procedures stable for DC per GI standpoint if tolerates diet Subjective Subjective c/o of constipation, had BM yesterday after given lactulose Objective Last 24 Hour Vital Signs Date Time Temp Pulse Resp B/P (MAP) Pulse Ox O2 Delivery O2 Flow Rate FiO2 03/15/18 08:00 98.0 64 18 108/50 95 Room Air 98.0 03/15/18 08:00 69 03/15/18 04:00 98.2 78 20 111/67 96 Room Air 98.2 03/15/18 04:00 66 03/15/18 00:00 65 03/15/18 00:00 98.3 69 18 101/57 98 Room Air 98.3 03/14/18 20:00 81 03/14/18 20:00 98.2 78 20 111/67 96 Room Air 98.2 03/14/18 16:00 68 03/14/18 16:00 98.3 85 19 111/59 97 Room Air 98.3 03/14/18 12:00 65 03/14/18 12:00 98.0 70 18 96/50 95 Room Air 98.0 Intake and Output 03/14/18 03/15/18 19:00 07:00 Intake Total 500 ml 1000 ml Balance 500 ml 1000 ml Intake Oral 0 ml IV Total 500 ml 1000 ml # Voids 3 2 # Bowel Movements 1 Laboratory Tests Test 03/15/18 06:50 White Blood Count 4.3 K/UL (4.8-10.8) L Red Blood Count 3.81 M/UL (4.20-5.40) L Hemoglobin 12.8 G/DL (12.0-16.0) Hematocrit 35.7 % (37.0-47.0) L Mean Corpuscular Volume 94 FL (80-99) Mean Corpuscular Hemoglobin 33.5 PG (27.0-31.0) H Mean Corpuscular Hemoglobin Concent 35.8 G/DL (32.0-36.0) Red Cell Distribution Width 10.5 % (11.6-14.8) L Platelet Count 146 K/UL (150-450) L Mean Platelet Volume 7.6 FL (6.5-10.1) Neutrophils (%) (Auto) 44.8 % (45.0-75.0) L Lymphocytes (%) (Auto) 32.8 % (20.0-45.0) Monocytes (%) (Auto) 18.0 % (1.0-10.0) H Eosinophils (%) (Auto) 3.8 % (0.0-3.0) H Basophils (%) (Auto) 0.6 % (0.0-2.0) Sodium Level 143 MMOL/L (136-145) Potassium Level 3.5 MMOL/L (3.5-5.1) Chloride Level 108 MMOL/L (98-107) H Carbon Dioxide Level 28 MMOL/L (21-32) Anion Gap 7 mmol/L (5-15) Blood Urea Nitrogen 5 mg/dL (7-18) L Creatinine 0.6 MG/DL (0.55-1.30) Estimat Glomerular Filtration Rate > 60 mL/min (>60) Glucose Level 99 MG/DL (74-106) Calcium Level 8.4 MG/DL (8.5-10.1) L Troponin I 0.000 ng/mL (0.000-0.056) Height (Feet): 5 Height (Inches): 1.00 Weight (Pounds): 172 General Appearance: WD/WN, no apparent distress, alert Cardiovascular: normal rate Respiratory/Chest: normal breath sounds, no respiratory distress Abdominal Exam: normal bowel sounds, non tender, soft Extremities: normal range of motion, non-tender Leah Hurley N.P. March 15, 2018 10:27
[2018-03-15 12:00] VITALS: BP 122/66
--- NOTE | 2018-03-15 15:42 | Diagnostic Imaging Report ---
Indication: chest pain Technique: The study was conducted under the supervision of a nuclear physics teacher. lexiscan (regadenoson) infusion over 10 seconds followed by intravenous administration of 32.2 mCi of technetium 99m Myoview was performed. Three plane SPECT imaging of the heart was then performed. A resting study was performed as part of the one-day protocol with 10.2 mCi of technetium 99m myoview injected intravenously at that time. Three plane SPECT imaging of the heart was obtained. Comparison: None Clinical data: 1. Clinical response: Non ischemic 2. Electrocardiographic response: Non ischemic Findings: The myocardial perfusion scan demonstrates no fixed or reversible perfusion defects. Left ventricular ejection fraction estimated at 75%. IMPRESSION: Negative examination.
[2018-03-15 16:00] VITALS: BP 127/80
--- NOTE | 2018-03-15 16:07 | Cardiac Electrophysiology PN ---
Assessment/Plan Assessment/Plan 1. Atypical chest pain. EKG is nondiagnostic without bundle-branch block. Ruled out [place]. Echocardiogram EF 60%.Had stress test today that showed no ischemia 2. Abdominal pain. Further evaluation by Dr. Carr, who feels that she probably has constipation. 3. Depression. DW RN OK to DC Subjective Subjective Feeling better. No CP or SOB.Had stress test today Objective Last 24 Hour Vital Signs Date Time Temp Pulse Resp B/P (MAP) Pulse Ox O2 Delivery O2 Flow Rate FiO2 03/15/18 12:00 97.7 65 18 122/66 93 Room Air 97.7 03/15/18 12:00 65 03/15/18 08:00 98.0 64 18 108/50 95 Room Air 98.0 03/15/18 08:00 69 03/15/18 04:00 98.2 78 20 111/67 96 Room Air 98.2 03/15/18 04:00 66 03/15/18 00:00 65 03/15/18 00:00 98.3 69 18 101/57 98 Room Air 98.3 03/14/18 20:00 81 03/14/18 20:00 98.2 78 20 111/67 96 Room Air 98.2 Intake and Output 03/14/18 03/15/18 19:00 07:00 Intake Total 500 ml 1000 ml Balance 500 ml 1000 ml Intake Oral 0 ml IV Total 500 ml 1000 ml # Voids 3 2 # Bowel Movements 1 Laboratory Tests Test 03/15/18 06:50 White Blood Count 4.3 K/UL (4.8-10.8) L Red Blood Count 3.81 M/UL (4.20-5.40) L Hemoglobin 12.8 G/DL (12.0-16.0) Hematocrit 35.7 % (37.0-47.0) L Mean Corpuscular Volume 94 FL (80-99) Mean Corpuscular Hemoglobin 33.5 PG (27.0-31.0) H Mean Corpuscular Hemoglobin Concent 35.8 G/DL (32.0-36.0) Red Cell Distribution Width 10.5 % (11.6-14.8) L Platelet Count 146 K/UL (150-450) L Mean Platelet Volume 7.6 FL (6.5-10.1) Neutrophils (%) (Auto) 44.8 % (45.0-75.0) L Lymphocytes (%) (Auto) 32.8 % (20.0-45.0) Monocytes (%) (Auto) 18.0 % (1.0-10.0) H Eosinophils (%) (Auto) 3.8 % (0.0-3.0) H Basophils (%) (Auto) 0.6 % (0.0-2.0) Sodium Level 143 MMOL/L (136-145) Potassium Level 3.5 MMOL/L (3.5-5.1) Chloride Level 108 MMOL/L (98-107) H Carbon Dioxide Level 28 MMOL/L (21-32) Anion Gap 7 mmol/L (5-15) Blood Urea Nitrogen 5 mg/dL (7-18) L Creatinine 0.6 MG/DL (0.55-1.30) Estimat Glomerular Filtration Rate > 60 mL/min (>60) Glucose Level 99 MG/DL (74-106) Calcium Level 8.4 MG/DL (8.5-10.1) L Troponin I 0.000 ng/mL (0.000-0.056) Objective HEAD AND NECK: Shows no JVD. LUNGS: Clear. CARDIOVASCULAR: Shows regular S1 and S2 with no gallop or murmur. ABDOMEN: Soft. EXTREMITIES: No pitting edema. Lucian Jarrett MD March 15, 2018 16:07
[2018-03-15 20:00] VITALS: BP 103/53
[2018-03-16] VITALS (11 sets, daily range): BP systolic 102–126; BP diastolic 54–67
[2018-03-16] MEDS ORDERED: Morphine Sulfate 4mg/ml Inj IVP PRN (00:45)
[2018-03-16] MEDS: Heparin 5000 units/ml inj SUBQ SCH ×2 (05:10→14:14)
[2018-03-16 06:06] LABS: BASOPHILS % (AUTO) 0.6 % (0.0-2.0); EOSINOPHILS % (AUTO) 3.1 % (0.0-3.0); HEMATOCRIT 36.5 % (37.0-47.0); HEMOGLOBIN 13.5 G/DL (12.0-16.0); LYMPHOCYTES % (AUTO) 31.5 % (20.0-45.0); MEAN CORPUSCULAR VOLUME 93 FL (80-99); MONOCYTES % (AUTO) 14.7 % (1.0-10.0); NEUTROPHILS % (AUTO) 50.2 % (45.0-75.0); PLATELET COUNT 164 K/UL (150-450); RED BLOOD COUNT 3.94 M/UL (4.20-5.40); RED CELL DISTRIBUTION WIDTH 10.7 % (11.6-14.8)
[2018-03-16 06:34] LABS: ANION GAP 6 mmol/L (5-15); BLOOD UREA NITROGEN 9 mg/dL (7-18); CALCIUM 8.7 MG/DL (8.5-10.1); CARBON DIOXIDE 30 MMOL/L (21-32); CHLORIDE 106 MMOL/L (98-107); CREATININE 0.6 MG/DL (0.55-1.30); POTASSIUM 3.8 MMOL/L (3.5-5.1); SODIUM 142 MMOL/L (136-145)
[2018-03-16] MEDS: Docusate 100mg cap ORAL SCH ×2 (08:13→14:18)
[2018-03-16] MEDS: Pantoprazole Inj IVP SCH ×2 (08:13→09:54)
--- NOTE | 2018-03-16 08:41 | Nephrology Progress Note ---
Assessment/Plan Assessment/Plan 1. Abdominal Pain- persists with advancement of diet - EGD today - [facility]iary NSAID user, await EGD findings. Appreciate GI input 2. Depression- on elavil 3. Neuropathy- gabapentin 4. DVT prophylaxis- heparin sub q 5. Chest Pain- stress test negative. Patient cleared from GI Subjective Date patient seen: March 16, 2018 Time patient seen: 08:36 Gastrointestinal/Abdominal: Reports: abdominal pain Allergies: Coded Allergies: No Known Allergies (Unverified , 10/10/15) All Systems: reviewed and negative except above Subjective Patient had negative stress test. Pending EGD as abdominal pain persists Objective Last 24 Hour Vital Signs Date Time Temp Pulse Resp B/P (MAP) Pulse Ox O2 Delivery O2 Flow Rate FiO2 03/16/18 07:42 98.1 61 18 118/67 98.1 03/16/18 04:00 98.0 62 18 117/61 95 Room Air 98.0 03/16/18 00:00 98.3 63 18 110/54 94 Room Air 98.3 03/15/18 20:00 98.1 68 18 103/53 95 Room Air 98.1 03/15/18 16:00 98.2 70 18 127/80 96 Room Air 98.2 03/15/18 16:00 69 03/15/18 12:00 97.7 65 18 122/66 93 Room Air 97.7 03/15/18 12:00 65 Intake and Output 03/15/18 03/16/18 19:00 07:00 Intake Total 500 ml Output Total 0 ml Balance 500 ml Intake Oral 300 ml IV Total 200 ml Output Stool Total 0 ml # Voids 3 1 Laboratory Tests 03/16/18 03:50: White Blood Count 6.0, Red Blood Count 3.94L, Hemoglobin 13.5, Hematocrit 36.5L , Mean Corpuscular Volume 93, Mean Corpuscular Hemoglobin 34.2H, Mean Corpuscular Hemoglobin Concent 36.9H, Red Cell Distribution Width 10.7L, Platelet Count 164, Mean Platelet Volume 7.6, Neutrophils (%) (Auto) 50.2, Lymphocytes (%) (Auto) 31.5, Monocytes (%) (Auto) 14.7H, Eosinophils (%) (Auto) 3.1H, Basophils (%) (Auto) 0.6, Sodium Level 142, Potassium Level 3.8, Chloride Level 106, Carbon Dioxide Level 30, Anion Gap 6, Blood Urea Nitrogen 9, Creatinine 0.6, Estimat Glomerular Filtration Rate > 60, Glucose Level 87, Calcium Level 8.7 Height (Feet): 5 Height (Inches): 5.00 Weight (Pounds): 172 General Appearance: WD/WN, no apparent distress EENT: PERRL/EOMI, normal ENT inspection Neck: non-tender, normal alignment Cardiovascular: normal peripheral pulses, normal rate, regular rhythm Respiratory/Chest: chest wall non-tender, lungs clear Abdomen: normal bowel sounds, non tender Edema: no edema noted Arm (L), no edema noted Arm (R), no edema noted Leg (L), no edema noted Leg (R), no edema noted Pedal (L), no edema noted Pedal (R), no edema noted Generalized Malachi Quijano M.D. March 16, 2018 08:41
[2018-03-16] MEDS ORDERED: Midazolam 2mg/2ml Inj ONE (11:37)
[2018-03-16] MEDS ORDERED: NS 500ML IVPB ONE (11:48)
[2018-03-16] MEDS ORDERED: Propofol 200mg/20ml IV ONE (12:00)
[2018-03-16] MEDS ORDERED: LR 1000ml ONE (12:00)
--- NOTE | 2018-03-16 12:01 | Pre-Procedure Note/Attestation ---
Pre-Procedure Note/Attestation Complete Prior to Procedure Planned Procedure: not applicable Procedure Narrative: egd Indications for Procedure Pre-Operative Diagnosis: abd pain Attestation I attest that I discussed the nature of the procedure; its benefits; risks and complications; and alternatives (and the risks and benefits of such alternatives ), prior to the procedure, with the patient (or the patient's legal guest relations representative). I attest that, if there was a reasonable possibility of needing a blood transfusion, the patient (or the patient's legal guest relations representative) was given the [facility] standardized written summary, pursuant to the [place] Blood Safety Act ([place] Health and Safety Code # 1645, as amended). I attest that I re-evaluated the patient just prior to the surgery and that there has been no change in the patient's H&P, except as documented below: STEVENSON URENA March 16, 2018 12:01
--- NOTE | 2018-03-16 12:02 | Endoscopy Procedure Note ---
Endoscopy Procedure Note General Indication for Procedure: abd pain Procedures Performed: EGD Operative Findings/Diagnosis: gastritis Specimen: yes Pt Tolerated Procedure Well: Yes Estimated Blood Loss: none Anesthesia Anesthesiologist: abdulaziz Anesthesia: MAC Inserted Devices Implant(s) used?: No GI Core Measures 50 yrs or older w/o bx or poly: Not Applicable 10yrs. F/U not recommended: Not Applicable STEVENSON URENA March 16, 2018 12:02
[2018-03-16] MEDS ORDERED: LR 1000ml 1,000 ML IVLG SCH (12:13)
--- NOTE | 2018-03-16 12:13 | Anethesia Preoperative Eval ---
Anesthesia Pre-op PMH/ROS General Date of Evaluation: March 16, 2018 Time of Evaluation: 11:56 Anesthesiologist: [place] ASA Score: ASA 2 Mallampati Score Class I : Soft palate, uvula, fauces, pillars visible Class II: Soft palate, uvula, fauces visible Class III: Soft palate, base of uvula visible Class IV: Only hard plate visible Mallampati Classification: Class II Surgeon: Corbin Diagnosis: Abdominal pain Surgical Procedure: EGD Anesthesia History: none Family History: no anesthesia problems Allergies: Coded Allergies: No Known Allergies (Unverified , 10/10/15) Medications: see eMAR Past Medical History Cardiovascular: Reports: HTN - mild; Denies: CAD, [place], valve dz, arrhythmia, other Pulmonary: Denies: asthma, COPD, BAL, other Gastrointestinal/Genitourinary: Reports: GERD; Denies: CRI, ESRD, other Neurologic/Psychiatric: Reports: depression/anxiety; Denies: dementia, CVA, TIA, other Endocrine: Denies: DM, hypothyroidism, steroids, other HEENT: Denies: cataract (L), cataract (R), glaucoma, [place] (L), [place] (R), other Hematology/Immune: Reports: DVT - H/o L leg DVT; Denies: anemia, bleeding disorder, other Musculoskeletal/Integumentary: Denies: OA, RA, DJD, DDD, edema, other Other: other - overweight PMH Narrative: Recurrent and as above abdominal pain PSxH Narrative: C- section Anesthesia Pre-op Phys. Exam Physician Exam Last Vital Signs Date Time Temp Pulse Resp B/P (MAP) Pulse Ox O2 Delivery O2 Flow Rate FiO2 03/16/18 11:44 97.8 65 18 110/60 97.8 03/16/18 04:00 95 Room Air Constitutional: NAD Neurologic: CN 2-12 intact Cardiovascular: RRR, no M/R/G Respiratory: CTA Gastrointestinal: S/NT/ND Airway Exam Mallampati Score: Class II MO: full Neck: flexible ROM: full Teeth: intact Dentures: no upper, no lower Anesthesia Pre-op A/P Labs Hematology Test 03/16/18 03:50 White Blood Count 6.0 K/UL (4.8-10.8) Red Blood Count 3.94 M/UL (4.20-5.40) L Hemoglobin 13.5 G/DL (12.0-16.0) Hematocrit 36.5 % (37.0-47.0) L Mean Corpuscular Volume 93 FL (80-99) Mean Corpuscular Hemoglobin 34.2 PG (27.0-31.0) H Mean Corpuscular Hemoglobin Concent 36.9 G/DL (32.0-36.0) H Red Cell Distribution Width 10.7 % (11.6-14.8) L Platelet Count 164 K/UL (150-450) Mean Platelet Volume 7.6 FL (6.5-10.1) Neutrophils (%) (Auto) 50.2 % (45.0-75.0) Lymphocytes (%) (Auto) 31.5 % (20.0-45.0) Monocytes (%) (Auto) 14.7 % (1.0-10.0) H Eosinophils (%) (Auto) 3.1 % (0.0-3.0) H Basophils (%) (Auto) 0.6 % (0.0-2.0) Chemistry Test 03/16/18 03:50 Sodium Level 142 MMOL/L (136-145) Potassium Level 3.8 MMOL/L (3.5-5.1) Chloride Level 106 MMOL/L (98-107) Carbon Dioxide Level 30 MMOL/L (21-32) Anion Gap 6 mmol/L (5-15) Blood Urea Nitrogen 9 mg/dL (7-18) Creatinine 0.6 MG/DL (0.55-1.30) Estimat Glomerular Filtration Rate > 60 mL/min (>60) Glucose Level 87 MG/DL (74-106) Calcium Level 8.7 MG/DL (8.5-10.1) Studies Pre-op Studies: EKG - NSR Risk Assessment & Plan Assessment: ASA 2 Plan: MAC Status Change Before Surgery: No Pre-Antibiotics Drug: none ROXY SAMUELS M.D. March 16, 2018 12:13
[2018-03-16] MEDS ORDERED: fentaNYL 100 mcg/2 mL IV PRN (12:15)
--- NOTE | 2018-03-16 12:28 | Immediate Post-Op Evaluation ---
Immediate Post-Op Evalulation Immediate Post-Op Evalulation Procedure: EGD with Bx Date of Evaluation: March 16, 2018 Time of Evaluation: 12:27 IV Fluids: 300 Blood Products: none Estimated Blood Loss: min Urinary Output: none Blood Pressure Systolic: 112 Blood Pressure Diastolic: 64 Pulse Rate: 65 Respiratory Rate: 20 O2 Sat by Pulse Oximetry: 99 Temperature (Fahrenheit): 97.6 Pain Score (1-10): 2 Nausea: No Vomiting: No Complications none Patient Status: awake, patent, none Hydration Status: adequate ROXY SAMUELS M.D. March 16, 2018 12:28
--- NOTE | 2018-03-16 12:30 | 48 Hour Post Anesthesia Eval ---
Post Anesthesia Evaluation Procedure: EGD with Bx Date of Evaluation: March 16, 2018 Time of Evaluation: 13:14 Blood Pressure Systolic: 122 0: 58 Pulse Rate: 68 Respiratory Rate: 18 Temperature (Fahrenheit): 97.6 O2 Sat by Pulse Oximetry: 98 Airway: patent Nausea: No Vomiting: No Pain Intensity: 1 Hydration Status: adequate Cardiopulmonary Status: stable Mental Status/LOC: patient returned to baseline Follow-up Care/Observations: n/a Post-Anesthesia Complications: none Follow-up care needed: N/A ROXY SAMUELS M.D. March 16, 2018 12:30
[2018-03-16] MEDS ORDERED: Milk of Magnesia 30ml Ud ORAL PRN (15:30)
--- NOTE | 2018-03-16 16:15 | Procedure Note ---
DATE OF PROCEDURE: 03/16/2018 SURGEON: Thiago Damian M.D. ANESTHESIOLOGIST: Dr. Be. PROCEDURE: Upper endoscopy with biopsy. ANESTHESIA: Per Dr. Be. INSTRUMENT: Olympus adult flexible upper endoscope. INDICATION: Nausea, vomiting, abdominal pain, chest pain. The procedure, risks, benefits, and possible consequences, including hemorrhage, aspiration, perforation and infection, and alternative treatments, were explained to the patient/legal guardian by Dr. Thiago Alaniz and the patient/legal guardian understood and accepted these risks. DESCRIPTION OF PROCEDURE: After informed consent was obtained and the patient was adequately sedated, Olympus upper endoscope was advanced from the mouth into the second portion of duodenum and retroflexion was performed in the stomach. GE junction was found to be about 35 cm from the incisors. There was some mild irregularity at the Z-line without any obvious severe esophagitis. Random biopsy from distal esophagus was obtained. Then, the scope was advanced into the stomach. The patient has minimum . Random biopsy from antrum and body was obtained to rule out H. pylori infection. The patient had diffuse gastritis, more prominence in the peripyloric region. No obvious ulceration. No obvious mass. Then, the scope was advanced to the duodenum and there was no evidence of any obvious duodenitis or duodenal ulcerations. SUMMARY OF FINDINGS: 1. GE junction at 35 cm from the incisors with irregular Z-line. 2. Status post biopsy of distal esophagus to rule out esophagitis. 3. Gastritis, status post biopsies from body and antrum to rule out H. pylori infection. RECOMMENDATIONS: 1. Follow up biopsies and treat accordingly. 2. We recommend the patient to seek outpatient GI consultation for colonoscopy screening. Thiago Alaniz M.D. DR: Freddy JOB#: [id number] CC:
--- NOTE | 2018-03-16 18:39 | General Surgery Progress Note ---
General Surgery-Progress Note Subjective Symptoms: improved, pain absent Additional Comments no acute events. doing well. stress test negative. Objective Last 24 Hour Vital Signs Date Time Temp Pulse Resp B/P (MAP) Pulse Ox O2 Delivery O2 Flow Rate FiO2 03/16/18 16:06 97.7 72 18 102/59 97.7 03/16/18 12:54 97.6 64 18 113/62 95 97.6 03/16/18 12:40 97.4 62 16 124/66 99 Room Air 97.4 03/16/18 12:35 63 18 126/65 95 Room Air 03/16/18 12:30 63 19 113/65 98 Room Air 03/16/18 12:30 207.7 68 18 98 03/16/18 12:28 207.7 65 20 99 03/16/18 12:25 65 20 112/66 100 Room Air 03/16/18 12:19 97.3 65 21 116/62 98 Room Air 97.3 03/16/18 11:44 97.8 65 18 110/60 97.8 03/16/18 07:42 98.1 61 18 118/67 98.1 03/16/18 04:00 98.0 62 18 117/61 95 Room Air 98.0 03/16/18 00:00 98.3 63 18 110/54 94 Room Air 98.3 03/15/18 20:00 98.1 68 18 103/53 95 Room Air 98.1 I&O Intake and Output 03/15/18 03/16/18 19:00 07:00 Intake Total 500 ml Output Total 0 ml Balance 500 ml Intake Oral 300 ml IV Total 200 ml Output Stool Total 0 ml # Voids 3 1 Cardiovascular: RSR Respiratory: clear Abdomen: soft, non-tender, present bowel sounds Extremities: no edema, no tenderness Laboratory Tests Test 03/16/18 03:50 White Blood Count 6.0 K/UL (4.8-10.8) Red Blood Count 3.94 M/UL (4.20-5.40) L Hemoglobin 13.5 G/DL (12.0-16.0) Hematocrit 36.5 % (37.0-47.0) L Mean Corpuscular Volume 93 FL (80-99) Mean Corpuscular Hemoglobin 34.2 PG (27.0-31.0) H Mean Corpuscular Hemoglobin Concent 36.9 G/DL (32.0-36.0) H Red Cell Distribution Width 10.7 % (11.6-14.8) L Platelet Count 164 K/UL (150-450) Mean Platelet Volume 7.6 FL (6.5-10.1) Neutrophils (%) (Auto) 50.2 % (45.0-75.0) Lymphocytes (%) (Auto) 31.5 % (20.0-45.0) Monocytes (%) (Auto) 14.7 % (1.0-10.0) H Eosinophils (%) (Auto) 3.1 % (0.0-3.0) H Basophils (%) (Auto) 0.6 % (0.0-2.0) Sodium Level 142 MMOL/L (136-145) Potassium Level 3.8 MMOL/L (3.5-5.1) Chloride Level 106 MMOL/L (98-107) Carbon Dioxide Level 30 MMOL/L (21-32) Anion Gap 6 mmol/L (5-15) Blood Urea Nitrogen 9 mg/dL (7-18) Creatinine 0.6 MG/DL (0.55-1.30) Estimat Glomerular Filtration Rate > 60 mL/min (>60) Glucose Level 87 MG/DL (74-106) Calcium Level 8.7 MG/DL (8.5-10.1) Plan Problems: (1) Abdominal pain Assessment & Plan: 62F with history as above. atypical pain distribution and no significant findings on initial tests. epigastric pain with radiation to back possible pancreatitis but lipase normal; may have resolved?. sternal and costal pain could be possible costochondritis given distribution. possible recent episode of enteritis. CT reviewed and no obstructive pattern noted. Echo reviewed Afebrile, HD stable, pain improved. laura/lip normal unlikely pancreas in nature. labs normal. exam benign. possible differential includes constipation or possible gastritis vs ulcer? Stress test negative EGD done diet as tolerated okay to d/c from surgical standpoint Rock Carr March 16, 2018 18:39
--- NOTE | 2018-03-18 11:58 | Diagnostic Imaging Report ---
EXAM: US Abdomen Complete CLINICAL HISTORY: ABD PAIN TECHNIQUE: Real-time ultrasound of the abdomen (complete) with image documentation. COMPARISON: No relevant prior studies available. FINDINGS: Liver: Heterogeneous liver. Gallbladder: Gallbladder distention. No gallstones stones or biliary ductal dilatation. Common bile duct: Unremarkable as visualized. Pancreas: Unremarkable as visualized Kidneys: No hydronephrosis. Spleen: No splenomegaly. Aorta: Unremarkable as visualized Inferior vena cava: Unremarkable as visualized. Other findings: Exam from 03/14/18 at 833. IMPRESSION: Gallbladder distention. No gallstones stones or biliary ductal dilatation.
--- NOTE | 2018-03-18 13:22 | Discharge Summary ---
Discharge Summary Hospital Course Date of Admission March 13, 2018 at 14:37 Date of Discharge March 16, 2018 at 18:48 Admitting Diagnosis ACUTE CORONARY SYNDROME HPI Veronica Francisco is a 62 year old female who was admitted on March 13, 2018 at 14 :37 for Acute Coronary Syndrome Hospital Course [id number] Discharge Discharge Disposition Patient was discharged to Home (01) Alyce Cooper NP March 18, 2018 13:22
--- NOTE | 2018-03-19 03:00 | Discharge Summary 2 SIG ---
DATE OF ADMISSION: 03/13/2018 DATE OF DISCHARGE: 03/16/2018 BRIEF HOSPITAL COURSE: The patient is a 62-year-old female with abdominal pain that started nine days prior to admission. She had nausea, vomiting, and diarrhea and started developing chest pain. She presented to emergency room few days back. Since then, she continued to have abdominal pain, nausea, and vomiting that eventually led to chest pain. She had not been feeling well and felt tired and weak and had not had any bowel movement or flatus for the last 24 to 36 hours. Prior to this, she was having diarrhea three to four times per day. She has medical history significant for hypertension, depression, and neuropathy. She presented to ED where on evaluation blood work showed WBC of 9.2. Troponin was negative. Lipase was normal. She had a CT of the abdomen and pelvis that showed scattered fluid-filled loops of small bowel with possibility of partial ileus versus enteritis. EKG was in sinus rhythm with flattening of the T-waves in the lateral leads, with right bundle-branch block. She was then admitted for evaluation of chest pain and abdominal pain. She was placed on NPO. She underwent surgical evaluation. Per review of CT of the abdomen, there was no obstructive pattern seen, she was having low-grade fevers. She was given IV fluid. Abdominal ultrasound showed distended gallbladder with no gallstones or biliary ductal dilatation. GI was consulted. The patient has been on long-term Dexilant for gastroesophageal reflux. She had symptoms of gastroenteritis with nausea, vomiting, and epigastric pain. She was eventually started on clear liquids and was observed conservatively. Cardiac evaluation was done. EKG was nondiagnostic. Troponins were monitored and was negative. Echocardiogram done showed ejection fraction of 60%. She underwent stress test that was negative for ischemia. She had an EGD done on 03/16/2018 that showed gastritis. There was also irregular Z-line on the GE junction at 3 to 5 cm from the incisors. The patient had improved epigastric pain with radiation to the back, possible pancreatitis, but lipase was normal, possibly may have resolved. Sternal and costal pain could be secondary to and nausea vomiting from recent episode of enteritis. She was hemodynamically stable and diet was advanced as tolerated. She was eventually discharged home. FINAL DIAGNOSES: 1. Abdominal pain with nausea, vomiting, possibly from viral gastroenteritis. 2. Depression. 3. Neuropathy.s 4. Chest pain, possibly from costochondritis. 5. Abdominal pain with radiation to the back, possible pancreatitis, but normal lipase, possibly resolved. DISPOSITION: The patient was discharged home. DISCHARGE MEDICATIONS: Refer to medication list. DISCHARGE INSTRUCTIONS: Follow up with PCP in a week. Pito Wilder M.D. I have been assigned to dictate discharge summary on this account and I was not involved in the patient's management. Alyce Cooper N.P. DR: ANTHONY JOB#: [id number] CC:
== END 2018-03-16 18:48 | disposition home or self-care (01) | DRG 251 ==
LOC: EMR 12:45 → 2E 14:37 → EDBEDREQ 14:43 → 3E 03-15 22:14
PROC: 0DB78ZX Excision of Stomach, Pylorus, Via Natural or Artificial Opening Endoscopic, Diagnostic (ICD-10-PCS; 2018-03-16)
PROC: 0DB68ZX Excision of Stomach, Via Natural or Artificial Opening Endoscopic, Diagnostic (ICD-10-PCS; 2018-03-16)
PROC: 0DB38ZX Excision of Lower Esophagus, Via Natural or Artificial Opening Endoscopic, Diagnostic (ICD-10-PCS; principal; 2018-03-16 12:02)
DX: R10.9 Unspecified abdominal pain (principal); I10 Essential (primary) hypertension; R07.9 Chest pain, unspecified; R11.2 Nausea with vomiting, unspecified; K29.70 Gastritis, unspecified, without bleeding
CPT/HCPCS: 36415; 74177; 76700; 78452; 80048; 80053; 80061; 81003; 82150; 83690; 83880; 84484; 85007; 85025; 93005; 93017; 93306; 94003; 94150; 99285; J2250; J2405; J2785